=== PATIENT | male | born 1950 | race Asian ===

== ENCOUNTER 2020-07-29 12:02 | Inpatient (IN) | payer MEDICARE, OTHER ==
[2020-07-29] MEDS ORDERED: HYDROmorphone 1 MG/ML CARPUJECT IVP STA ×2 (12:16→14:23)
[2020-07-29 12:40] LABS: BASOPHILS # (AUTO) 0.1 10^3/uL (0.0-0.1); BASOPHILS % (AUTO) 0.4 %; EOSINOPHILS % (AUTO) 0.1 %; HGB - HEMOGLOBIN 13.6 g/dL (14.0-18.0); LYMPHOCYTES # (AUTO) 0.5 10^3/uL (1.5-3.5); MEAN CORPUSCULAR HEMOGLOBIN 32.2 pg (27.0-31.0); MEAN CORPUSCULAR HGB CONC 33.7 g/dL (32.0-36.0); MEAN CORPUSCULAR VOLUME 95.5 fL (80.0-94.0); MEAN PLATELET VOLUME 10.2 fL (7.4-11.4); MONOCYTES # (AUTO) 0.5 10^3/uL (0.0-1.0); MONOCYTES % (AUTO) 3.1 %; NEUTROPHILS # (AUTO) 15.9 10^3/uL (1.5-6.6); NEUTROPHILS % (AUTO) 92.7 %; PLT - PLATELET COUNT 232 10^3/uL (130-450); RED BLOOD COUNT 4.22 10^6/uL (4.70-6.10); RED CELL DISTRIBUTION WIDTH 12.5 % (12.0-15.0); WHITE BLOOD COUNT 17.1 x10^3/uL (4.8-10.8)
[2020-07-29 12:49] LABS: INR 1.2 (0.8-1.2); PT - PROTHROMBIN TIME 13.3 secs (9.9-12.6)
[2020-07-29 12:54] LABS: ALBUMIN 4.4 g/dL (3.2-5.5); ALBUMIN/GLOBULIN RATIO 1.2 (1.0-2.2); BILIRUBIN,TOTAL 0.8 mg/dL (0.2-1.0); CALCIUM 9.8 mg/dL (8.5-10.3); CREATININE 1.1 mg/dL (0.6-1.2)
--- NOTE | 2020-07-29 13:15 | CT Report ---
PROCEDURE: HEAD WO INDICATIONS: head inj, fall from height TECHNIQUE: Noncontrast 4.5 mm thick angled axial sections acquired from the foramen magnum to the vertex. For r adiation dose reduction, the following was used: automated exposure control, adjustment of mA and/or kV according to patient size. COMPARISON: Correlation is made with the accompanying maxillofacial CT and cervical spine CT, 2019 FINDINGS: Image quality: Excellent. CSF spaces: Basal cisterns are patent. No extra-axial fluid collections. Ventricles are normal in size and shape. Brain: No midline shift. No intracranial masses or hemorrhage. [place]-white matter interface is norm al. Skull and face: Numerous facial bone fractures are seen. There is a scalp hematoma seen on the right , without an associated displaced calvarial fracture seen at this site. Sinuses: Blood is seen within the right maxillary sinus and within the sphenoid sinuses. No significa nt abnormal fluid can be seen within the mastoid air cells or within the middle ear cavities. IMPRESSION: No intracranial hemorrhage is seen. No significant intracranial abnormality is seen. Numerous facial bone fractures are seen. Sinus blood can be seen. Please see the accompanying maxillo facial CT report. Right-sided scalp hematoma, without an associated displaced calvarial fracture. Reviewed by: Ronnie Solomon MD on 07/29/2020 12:14 PM STEVEN Approved by: Ronnie Solomon MD on 07/29/2020 12:14 PM STEVEN Station ID: [id number]
--- NOTE | 2020-07-29 13:19 | CT Report ---
PROCEDURE: CERVICAL SPINE WO INDICATIONS: fall from height TECHNIQUE: Noncontrast 3 mm thick sections acquired from the skull base to the T4 level. Sagittal and coronal r eformats were then constructed. For radiation dose reduction, the following was used: automated exp osure control, adjustment of mA and/or kV according to patient size. COMPARISON: Correlation is made with the accompanying head CT and maxillofacial CT and chest CT date d 07/29/2020 FINDINGS: Image quality: Excellent. Bones: No fractures or dislocations. Visualized superior ribs are intact. Postoperative changes are seen, with corpectomy with a fibular strut graft extending from C4 through C7. Posteriorly, bilateral pedicle screws are seen C4-C7. The C7 screws partially traverse the C7-T1 disc levels. No findings of hardware failure or hardware loosening can be seen. Bone grafting materia l is seen. Focal degenerative change is seen involving the C1-C2 interface anteriorly. Focal facet hypertrophy i s seen at the C2-C3 level, right worse than left. Focal disc space narrowing is seen at the T1-T2 lev el, with associated endplate irregularity and sclerosis. Vacuum disc phenomenon is seen at this leve l. Soft tissues: Prevertebral soft tissues are normal in thickness. No paravertebral hematomas. No ap ical pneumothoraces. IMPRESSION: Extensive postoperative hardware, without findings of hardware failure or hardware loosening. No acute fractures are seen. Focal T1-T2 degenerative change Reviewed by: Ronnie Solomon MD on 07/29/2020 12:17 PM STEVEN Approved by: Ronnie Solomon MD on 07/29/2020 12:17 PM AKJAYDEN Station ID: [id number]
--- NOTE | 2020-07-29 13:19 | ED Physician Documentation ---
PD HPI HEAD INJURY - Stated complaint Stated Complaint: FALL - Chief complaint Chief Complaint: Trauma Hd/Nk - History obtained from History obtained from: Patient - Additional information Additional information: 69-year-old gentleman with hypertension was up on his roof taking shingles off in preparation for re-hoa and fell. He landed on his right side with positive loss of consciousness for several minutes. Complains of right-sided headache and facial pain, right shoulder pain, right chest pain. He has been ambulatory since the accident. He is up-to-date on tetanus. Review of Systems Ten Systems: 10 systems reviewed and negative Constitutional: reports: Reviewed and negative Throat: reports: Reviewed and negative Cardiac: reports: Reviewed and negative Respiratory: reports: Reviewed and negative PD PAST MEDICAL HISTORY - Past Medical History Past Medical History: Yes Cardiovascular: None Respiratory: None Neuro: None Endocrine/Autoimmune: None GI: Hepatitis : None HEENT: Other Psych: None Musculoskeletal: Chronic back pain, Other Derm: None - Past Surgical History Past Surgical History: Yes General: Appendectomy Ortho: Spine surgery Derm: Other - Present Medications Home Medications: Ambulatory Orders Medication Instructions Recorded Confirmed hydroCHLOROthiazide 25 mg PO DAILY 07/29/20 07/29/20 [Hydrochlorothiazide] lisinopriL [Lisinopril] 10 mg PO DAILY 07/29/20 07/29/20 - Allergies Allergies/Adverse Reactions: Allergies Allergy/AdvReac Type Severity Reaction Status Date / Time No Known Drug Allergies Allergy Verified 07/29/20 12:16 - Social History Does the pt smoke?: No Smoking Status: Never smoker Does the pt drink ETOH?: Yes ETOH Use: Beer Does the pt have substance abuse?: No - Immunizations Immunizations are current?: Yes - POLST Patient has POLST: No PD ED PE NORMAL - Vitals Vital signs reviewed: Yes - General General: Alert and oriented X 3, No acute distress - HEENT HEENT: PERRL, EOMI, Other (Swelling and tenderness of the right maxilla and supraorbital areas with ecchymosis there. He has a small lateral right sided subconjunctival hemorrhage, No evidence of entrapment) - Neck Neck: No bony TTP (But maintained in a collar pending imaging given potential for distracting injury) - Cardiac Cardiac: RRR, No murmur - Respiratory Respiratory: No respiratory distress, Clear bilaterally, Other (Mild right-sided chest wall tenderness) - Abdomen Abdomen: Soft, Non tender - Back Back: No CVA TTP, No spinal TTP - Derm Derm: Normal color, Warm and dry - Extremities Extremities: Other (Little scrape on the right knee, no bony tenderness of the extremities. Shoulder hurts with range of motion and only able to abduct to about 90 degrees.) - Neuro Neuro: Alert and oriented X 3, No motor deficit, No sensory deficit, Normal speech Results - Vitals Vitals: Vital Signs - 24 hr 07/29/20 07/29/20 07/29/20 12:05 12:22 13:22 Temperature 36.9 C 36.7 C Heart Rate 66 62 64 Respiratory 18 10 L 15 Rate Blood Pressure 139/73 H 144/78 H 136/67 H O2 Saturation 97 99 98 07/29/20 07/29/20 07/29/20 13:30 14:00 14:33 Temperature Heart Rate 61 59 L 67 Respiratory 12 13 12 Rate Blood Pressure 106/90 H 127/4 L 131/74 H O2 Saturation 99 98 100 Oxygen O2 Source Room air - Labs Labs: Laboratory Tests 07/29/20 07/29/20 07/29/20 12:25 12:25 12:25 WBC 17.1 H RBC 4.22 L Hgb 13.6 L Hct 40.3 L MCV 95.5 H MCH 32.2 H MCHC 33.7 RDW 12.5 Plt Count 232 MPV 10.2 Neut # (Auto) 15.9 H Lymph # (Auto) 0.5 L [place] # (Auto) 0.5 Eos # (Auto) 0.0 Baso # (Auto) 0.1 Absolute Nucleated RBC 0.00 Nucleated RBC % 0.0 PT 13.3 H INR 1.2 Sodium 139 Potassium 3.7 Chloride 102 Carbon Dioxide 24 Anion Gap 13.0 BUN 30 H Creatinine 1.1 Estimated GFR (MDRD) 67 L Glucose 139 H Calcium 9.8 Total Bilirubin 0.8 AST 71 H ALT 35 Alkaline Phosphatase 64 Total Protein 8.0 Albumin 4.4 Globulin 3.6 Albumin/Globulin Ratio 1.2 Lipase 28 - Rads (name of study) CT Head Radiology: EMP read contemporaneously (No significant intracranial abnormality or displaced skull fracture; However subsequently I was talking to the radiologist and he agreed there was a nondisplaced right temporoparietal skull fracture. He also noted a tiny amount of intracranial air and blood that was seen better on the CT face) CT cervical spine Radiology: EMP read contemporaneously (Hardware in place, no acute disease or fracture.) X-ray right shoulder Radiology: EMP read contemporaneously (Nondisplaced glenoid fracture) CT Facial bones Radiology: Discussed with rads, EMP read contemporaneously (Extensive right- sided facial bone fractures with hemorrhage into the right sinus, right basilar skull fracture with a small amount of intracranial gas and intracranial hemorrhage.) CT of the chest without contrast Radiology: EMP read contemporaneously (Nondisplaced right lateral lower rib fracture with immediately adjacent small amount of intercostal subcutaneous emphysema and mild focal pulmonary contusion. Note made of 2 x 3 mm nonspecific small pulmonary nodule) PD MEDICAL DECISION MAKING - ED course ED course: 69-year-old gentleman presents with fall from height, shoulder chest head and face injuries. He has some extensive facial fractures that have just a bit of intracranial extension and nondisplaced skull fracture. Looks like he has a rib fracture with a small pulmonary contusion, also a glenoid fracture. The glenoid fracture we discussed by phone with Dr. Delgadillo, on-call orthopedics who felt that this was conservative management with a sling only. The facial fractures were discussed by phone with Dr. Leonides Shaikh who will see the patient but first we need to clear him from a neurosurgical perspective and I will call [facility] and discuss given the intracranial gas and blood. Subsequently I called [facility] but it turns out the patient had [employer] insurance and I spoke with the E pro line. They prefer if he needs transport for him to go to [place]. [place] [facility] [place] was called for a neurosurgical consult. [place] said it was okay to keep him here if he does not need transport. Spoke with Dr. Gonzalez, neurosurgery in [place]. He viewed the CTs and felt that the patient did not need transfer for neurosurgical intervention nor does he need repeat scanning unless the GCS dropped to 12 or lower[address] Spoke with Dr. Cameron the general surgeon at 3 PM for admission, he will write admission orders as. Dr. Shaikh will come in and consult and consider the need for operative fixation. Departure - Departure Disposition: 67 [facility] DC/Xfer Clinical Impression: Pulmonary nodule Facial bone fracture Qualifiers: Encounter type: initial encounter Facial bone/location: unspecified site of maxillary bone Fracture type: closed Laterality: right Qualified Code(s): S02.40CA - Maxillary fracture, right side, initial encounter for closed fracture Skull fracture Qualifiers: Encounter type: initial encounter Skull bone/location: temporal bone Fracture type: closed Qualified Code(s): S02.19XA - Other fracture of base of skull, initial encounter for closed fracture Pulmonary contusion Qualifiers: Encounter type: initial encounter Laterality: right Qualified Code(s): S27.321A - Contusion of lung, unilateral, initial encounter Fracture of rib, single, closed Qualifiers: Encounter type: initial encounter Laterality: right Qualified Code(s): S22.31XA - Fracture of one rib, right side, initial encounter for closed fracture Condition: Fair
--- NOTE | 2020-07-29 13:20 | XRAY Report ---
PROCEDURE: Shoulder 3 View RT INDICATIONS: shoulder inj TECHNIQUE: 3 views of the shoulder were acquired. COMPARISON: None. FINDINGS: Bones: There is an acute fracture involving upper portion of glenoid with fracture line extending to the glenohumeral joint space. Moderate acromioclavicular joint and glenohumeral joint osteoarthritic changes are seen. No dislocation. No suspicious bony lesions. Visualized ribs appear intact. Soft tissues: No suspicious soft tissue calcifications. IMPRESSION: Acute nondisplaced glenoid fracture as above. Reviewed by: Shaun Ho MD on 07/29/2020 1:18 PM PDT Approved by: Shaun Ho MD on 07/29/2020 1:18 PM PDT Station ID: [id number]
--- NOTE | 2020-07-29 13:33 | CT Report ---
PROCEDURE: MAXILLOFACIAL WO INDICATIONS: facial inj, fall from height TECHNIQUE: Noncontrast 1.5 mm thick axial images acquired from the mandible through the frontal sinuses, with co fredi and sagittal reformatting. For radiation dose reduction, the following was used: automated ex posure control, adjustment of mA and/or kV according to patient size. COMPARISON: Correlation is made with the accompanying head CT and cervical spine CT examinations, FINDINGS: Image quality: Excellent. Bones and teeth: The right lateral orbital wall and right orbital floor are fractured. No definite f indings of entrapment of the inferior rectus muscle can be seen. However, please correlate with physi latoya examination findings. Mild degree of intraorbital gas can be seen inferiorly, as on series 5 imag e 51. There is a comminuted fracture of the right zygomatic arch. The zygoma itself appears intact. The anterior, medial, lateral bean of the right maxillary sinus are fractured. Extensive right maxil adair sinus blood can be seen. The pterygoid plates appear intact. There is a mildly displaced fracture seen involving the right greater wing of the sphenoid, which is best seen on series 6 image 129. There is a small amount of associated intracranial gas, which is als o seen on series 6 image 129 and can also be seen on series 3 image 107. A small amount of hemorrhage can be seen involving the anterior aspect of the right middle cranial fossa. The mandible does not appear fractured. There is no mandibular dislocation. Cervical spine fixation hardware is partially seen and appears intact. There is chronic mild to moderate rightward nasal septal deviation, without an acute nasal septal fra cture identified. No definite acute nasal bone fracture is seen. The right cranial demonstrates a complex fracture, which can be seen on series 2 images 115 through 1 55. Sinuses: Extensive blunt can be seen within the right maxillary sinus and the sphenoid sinuses. Mild mucosal thickening is seen within the ethmoid air cells. No significant abnormal fluid can be seen wi thin the mastoid air cells or within the middle ear cavities. Soft tissues: Soft tissue hemorrhage can be seen on the right. Vascular: Visualized vascular structures appear normal in the absence of contrast. Bony vascular fo ramina and canals are intact. IMPRESSION: Extensive right-sided facial bone fractures are seen, with associated prominent sinus he morrhage. The right skull base is fractured, with associated intracranial gas and a small amount of intracrania l hemorrhage involving the anterior aspect of the right middle cranial fossa. A complex fracture can also be seen involving the right cranial vault laterally. Note: Case discussed by telephone with Dr. Burks at 12:28 PM [place] time on 07/29/2020. Reviewed by: Ronnie Solomon MD on 07/29/2020 12:31 PM AKDT Approved by: Ronnie Solomon MD on 07/29/2020 12:31 PM AKDT Station ID: [id number]
--- NOTE | 2020-07-29 13:47 | CT Report ---
PROCEDURE: CHEST WO INDICATIONS: chest wall inj, fall from height TECHNIQUE: Noncontrast 5 mm thick sections acquired from the pulmonary apices to the posterior costophrenic angl es. 7 mm thick coronal and sagittal MIP reformats were then acquired. For radiation dose reduction, the following was used: automated exposure control, adjustment of mA and/or kV according to patient size. COMPARISON: FINDINGS: Image quality: Excellent. Lungs and pleura: No acute air space opacities on the left but there is a focal pulmonary contusion on the right involving the lateral segment right middle lobe immediately deep to an area of nondispla yuri rib fracture and a slight degree of chest wall subcutaneous emphysema, best seen centered on CT s eries 4 image 133 for the subcutaneous emphysema, and the fracture and contiguous pulmonary contusion on image 146. A 2 x 3 mm pulmonary nodule is seen within the anterior right lower lobe on image 181. . No pleural effusions or pneumothorax. Central and peripheral airways are patent and normal in latoya iber. Mediastinum: Heart size is normal. No pericardial effusion. No mediastinal adenopathy by size crit eria. Thoracic aorta and central pulmonary arteries are normal in size. Esophagus is normal in rinku gamal. No hiatal hernia. Bones and chest wall: No suspicious bony lesions. No vertebral body compression fractures. No axil adair or supraclavicular adenopathy by size criteria. The thyroid is normal in size. Abdomen: Visualized upper abdominal solid organs and bowel loops appear normal in the absence of con trast. IMPRESSION: Nondisplaced right lateral lower rib fracture, with immediate adjacent small amount of intercostal purdy bcutaneous emphysema and also a mild focal pulmonary contusion within the lateral segment right middl e lobe. No pneumothorax more superiorly is found. Note is made of a 2 x 3 mm nonspecific small pulmonary nodule anterior right middle lobe near the are a of current injury. Reviewed by: Cedric Jones MD on 07/29/2020 1:45 PM PDT Approved by: Cedric Jones MD on 07/29/2020 1:45 PM PDT Station ID: [id number]
[2020-07-29] MEDS ORDERED: LORazepam 2 MG/ML VIAL IVP STA (15:31)
[2020-07-29] MEDS ORDERED: SODIUM CHLORIDE 0.9% 1,000 ML IV STA (15:31)
[2020-07-29] MEDS ORDERED: SODIUM CHLORIDE FLUSH 0.9% 10 ML SYRINGE IVP PRN ×2 (16:18)
[2020-07-29] MEDS ORDERED: ALBUTEROL NEB 2.5 MG/3 ML INH PRN (16:18)
[2020-07-29] MEDS ORDERED: METOCLOPRAMIDE 10 MG/2 ML VIAL IVP PRN (16:18)
[2020-07-29] MEDS ORDERED: ONDANSETRON 4 MG/2 ML VIAL IVP PRN (16:18)
[2020-07-29] MEDS ORDERED: IPRATROPIUM 0.2 MG/ML NEB INH PRN (16:18)
--- NOTE | 2020-07-29 16:18 | HISTORY & PHYSICAL EXAMINATION ---
Chief Complaint - Chief Complaint Chief Complaint: Fall from ladder with loss of consciousness History of Present Illness - Admitted From Admitted From:: By emergency medical services - History Obtained From Records Reviewed: EMR History obtained from: Patient Exam Limitations: None - History of Present Illness HPI Comment/Other: 69-year-old male presents following fall from ladder while working on roof at his mother's house. There was positive loss of consciousness. He had spontaneous return to consciousness. He complains of facial pain and right chest wall tenderness. He underwent full work-up by the emergency room and was also noted for facial bone fractures as well as rib fractures and surgery was called for consultation and admission. He has no significant past medical history other than hypertension for which he takes hydrochlorothiazide and lisinopril. No significant past abdominal surgical history other than appendectomy. He does have a significant history of C-spine fixation and surgery. History - Past Medical History Cardiovascular: reports: None Respiratory: reports: None Neuro: reports: None Endocrine/Autoimmune: reports: None GI: reports: Hepatitis : reports: None HEENT: reports: Other Psych: reports: None Musculoskeletal: reports: Chronic back pain, Other (History of C-spine fixation/surgery) Derm: reports: None - Past Surgical History General: reports: Appendectomy Ortho: reports: Spine surgery Derm: reports: Other - POLST Patient has POLST: No Meds/Allgy - Home Medications Home Medications: Ambulatory Orders Medication Instructions Recorded Confirmed hydroCHLOROthiazide 25 mg PO DAILY 07/29/20 07/29/20 [Hydrochlorothiazide] lisinopriL [Lisinopril] 10 mg PO DAILY 07/29/20 07/29/20 - Allergies Allergies/Adverse Reactions: Allergies Allergy/AdvReac Type Severity Reaction Status Date / Time No Known Drug Allergies Allergy Verified 07/29/20 12:16 Review of Systems - Constitutional Constitutional: denies: Fatigue - Eyes Eyes: reports: Pain - Ears, Nose & Throat Ears, Nose & Throat: denies: Ear pain - Cardiovascular Cariovascular: reports: Chest pain. denies: Irregular heart rate - Respiratory Respiratory: denies: Cough, Wheezing, Hemoptysis, Orthopnea, SOB at rest, SOB with exertion - Gastrointestinal Gastrointestinal: denies: Abdominal pain, Black stools, Bloody stools, Nausea, Vomiting - Musculoskeletal Musculoskeletal: reports: Back pain - Neurological Neurological: reports: Other (Does report loss of consciousness at the time of his fall). denies: General weakness, Focal weakness, Numbness Exam - Vital Signs Vital Signs: Vital Signs x48h Temp Pulse Resp BP Pulse Ox 07/29/20 14:33 67 12 131/74 H 100 07/29/20 14:00 59 L 13 127/4 L 98 07/29/20 13:30 61 12 106/90 H 99 07/29/20 13:22 36.7 C 64 15 136/67 H 98 07/29/20 12:22 62 10 L 144/78 H 99 07/29/20 12:05 36.9 C 66 18 139/73 H 97 - Physical Exam General Appearance: positive: No acute distress, Alert Eyes Bilateral: positive: Normal inspection, PERRL, EOMI, Other (No signs of entrapment from his facial fractures, significant right periorbital ecchymosis, full range of motion's bilateral orbits.) ENT: positive: ENT inspection nml Neck: positive: Nml inspection, Other (Patient with full range of motion of his neck with no midline tenderness on flexion, extension, bilateral head rotation. Some occipital discomfort but specifically no midline neck tenderness.) Respiratory: positive: No respiratory distress, Breath sounds nml, Other (Right- sided tenderness to palpation). negative: Chest non-tender, Wheezes, Rales, Rhonchi Cardiovascular: positive: Regular rate & rhythm Abdomen: positive: Non-tender, No distention, Other (Surgical dressing in place, clean dry and intact. No recurrent hernia. Soft nondistended positive bowel sounds.). negative: Tenderness, Guarding, Rebound Skin: positive: Color nml Extremities: positive: Non-tender, Full ROM, Nml appearance, Other (Moving all extremities no sensorimotor deficits grossly) Neurologic/Psychiatric: positive: Oriented x3, CN's nml (2-12), Motor nml, Sensation nml Sepsis Event Note (H) - Evaluation Current Stage of Sepsis: Ruled out Conclusion/Plan - Problem List (1) Fall (on) (from) unspecified stairs and steps, initial encounter Conclusion/Plan: Plan per oral maxillofacial surgery. Surgery on July 30 for ORIF. To this end we will continue to monitor for rhinorrhea, otorrhea, No antibiotics other than on-call to the OR per OMFS. Before surgery patient will have CT head and repeat chest x-ray to assure no propagation of his injuries. Great care should be taken given his history of C-spine fixation during positioning in the operating room. (2) Facial bone fracture Qualifiers: Encounter type: initial encounter Facial bone/location: unspecified site of maxillary bone Fracture type: closed Laterality: right Qualified Code(s): S02.40CA - Maxillary fracture, right side, initial encounter for closed fracture (3) Fracture of rib, single, closed Conclusion/Plan: CT of the chest revealed rib fracture, subcutaneous emphysema. Pain control, oxygen, incentive spirometry. Repeat plain abdominal film and if there is any concern repeat CT of the chest to rule out pneumothorax to assure there is no indication for chest tube preoperatively. Qualifiers: Encounter type: initial encounter Laterality: right Qualified Code(s): S22.31XA - Fracture of one rib, right side, initial encounter for closed fracture (4) Pulmonary contusion Conclusion/Plan: See above. Qualifiers: Encounter type: initial encounter Laterality: right Qualified Code(s): S27.321A - Contusion of lung, unilateral, initial encounter (6) Skull fracture Conclusion/Plan: Given his skull fracture, and loss of consciousness, together with mechanism, will repeat CT of the head this a.m. to assure there is no propagation prior to his operative intervention. Admit ICU n.p.o., serial neuro checks. Qualifiers: Encounter type: initial encounter Skull bone/location: temporal bone F racture type: closed Qualified Code(s): S02.19XA - Other fracture of base of skull, initial encounter for closed fracture - Lab Results Fish Bones: 07/29/20 12:25 07/29/20 12:25 - Diagnostic Imaging Results Diagnostic Imaging Results Comments: CT head impression: 1. No intracranial hemorrhage is seen 2. No significant intracranial abnormality is seen. 3. Numerous facial bone fractures are seen 6. Sinus blood can be seen. 4. Right sided scalp hematoma without associated displaced calvarial fracture. CT C-spine impression: 1. Extensive postoperative hardware, without findings of hardware failure or hardware loosening. 2. No acute fractures are seen. 3. Focal T1-T2 generative change Facial bone CT: 1. Extensive right-sided facial bone fractures are seen with associated prominent sinus hemorrhage 2. The right skull base is fractured with associated intracranial gas and a small amount of intracranial hemorrhage involving the anterior aspect of the right middle cranial fossa. 3. A complex fracture can also be seen involving the right cranial vault laterally. CT of the chest Undisplaced right lateral lower rib fracture, with immediate adjacent small amount of intercostal subcutaneous emphysema and also a mild focal pulmonary contusion within the lateral segment right middle lobe. No pneumothorax more superiorly is found. Note is made of a 2 x 3 mm nonspecific small pulmonary nodule anterior right middle lobe near the area of current injury.
--- NOTE | 2020-07-29 16:53 | CONSULTATION NOTE ---
Referring Provider Name of Referring Provider:: Flaquito Elliott Consult Date: 07/29/20 <Leonides Shaikh - Last Filed: 07/29/20 21:56> Chief Complaint - Chief Complaint Chief Complaint: Shoulder pain <Leonides Shaikh - Last Filed: 07/29/20 21:56> History of Present Illness - Admitted From Admitted From:: ER <Leonides Shaikh - Last Filed: 07/29/20 21:56> - History of Present Illness HPI Comment/Other: 69 yo M who fell one story from his roof today, where he was working. He did have loss of consciousness. He was brought to the [facility] ER and had CT head, face, neck. He was found to have a small intracranial injury associated with a right temporoparietal fracture, minimally displaced. Neurosurgery at another facility reviewed the patient's radiographs and no transfer or follow up CT is indicated. The patient also sustained a rib fracture. He is being admitted by General Surgery for observation. OMFS was consulted for evaluation and management of a right ZMC fracture. (Leonides Shaikh) History - Past Medical History Cardiovascular: reports: None Respiratory: reports: None Neuro: reports: None Endocrine/Autoimmune: reports: None GI: reports: Hepatitis : reports: None HEENT: reports: Other Psych: reports: None Musculoskeletal: reports: Chronic back pain, Other Derm: reports: None - Past Surgical History General: reports: Appendectomy Ortho: reports: Spine surgery Derm: reports: Other - POLST Patient has POLST: No <Leonides Shaikh - Last Filed: 07/29/20 21:56> Meds/Allgy <Alin Delgadillo - Last Filed: 07/29/20 17:44> <Leonides Shaikh - Last Filed: 07/29/20 21:56> - Home Medications Home Medications: Ambulatory Orders Medication Instructions Recorded Confirmed hydroCHLOROthiazide 25 mg PO DAILY 07/29/20 07/29/20 [Hydrochlorothiazide] lisinopriL [Lisinopril] 10 mg PO DAILY 07/29/20 07/29/20 - Allergies Allergies/Adverse Reactions: Allergies Allergy/AdvReac Type Severity Reaction Status Date / Time No Known Drug Allergies Allergy Verified 07/29/20 12:16 Review of Systems - Eyes Eyes: reports: Vision loss (chronic. Denies acute vision loss.). denies: Pain, Spots in vision, Field loss, Dipolpia - Ears, Nose & Throat Ears, Nose & Throat: reports: Hearing loss (Chronic.), Nasal pain (Epistaxis after the fall, stopped with pressure), Dentures. denies: Ear pain - Cardiovascular Cariovascular: denies: Palpitations, Chest pain, Lightheadedness, Syncope - Respiratory Respiratory: denies: Cough, Wheezing - Gastrointestinal Gastrointestinal: denies: Abdominal pain, Rectal bleeding, Vomiting - Musculoskeletal Musculoskeletal: reports: Back pain - Integumentary Integumentary: denies: Rash, Lesions - Neurological Neurological: reports: Headache, Dizziness. denies: General weakness, Numbness - Psychiatric Psychiatric: denies: Depression, Anxiety - All Other Systems All Other Systems: reports: Reviewed and negative <Leonides Shaikh - Last Filed: 07/29/20 21:56> Exam - Physical Exam General Appearance: positive: Other (Awake alert and conversant.) Eyes Bilateral: positive: PERRL, Other (Right hemifacial bruisingScleral erythema right eye.) ENT: positive: Other (Full range of motion of the cervical spine with forward flexion extension and rotation without any cervical spine tenderness) Neck: positive: Trachea midline, Swelling/bruising (No specific swelling or bruising.) Cardiovascular: positive: Regular rate & rhythm Abdomen: positive: Non-tender Rectal: positive: Other (Deferred) Back: positive: Nml inspection, Other (No specific tenderness in his lumbar spine) Skin: positive: Other (As noted previously he has ecchymoses on his face and a right knee abrasion superficial) Extremities: positive: Other (Specific exam of his right shoulder reveals that he can abduct to only about 90 degrees and externally rotate to about 30 degrees actively and internally rotate to his chestHe has full range of motion of his elbow. His radial median ulnar nerves are intact. Musculocutaneous and axill sarah nerves are) Neurologic/Psychiatric: positive: Oriented x3, CN's nml (2-12), Motor nml, Sensation nml, Mood/affect nml, Disoriented to place, Disoriented to time Reflexes: Bicep (R): 1+, Bicep (L): 1+, Knee (R): 1+, Knee (L): 1+, Ankle (R): 1+, Ankle (L): 1+ <Alin Delgadillo - Last Filed: 07/29/20 17:44> - Vital Signs Reviewed Vital Signs: Yes - Physical Exam Eyes Bilateral: positive: PERRL, EOMI, No lid inflammation, Other (Subconjunctival hemorrhage limited to the R sclera, stopping abruptly at midline, consistent with the classic clinical exam finding for ZMC fracture.) ENT: positive: Other (Full range of motion of the cervical spine with forward flexion extension and rotation without any cervical spine tenderness PATRIC wnl. Bruising in the R maxillary vestibule) Respiratory: positive: No respiratory distress, Other (Pain in the R costovertebral angle during deep breaths) Peripheral Pulses: positive: 2+ Abdomen: positive: No distention Back: positive: Other Neurologic/Psychiatric: positive: CN's nml (2-12), Motor nml <Leonides Shaikh - Last Filed: 07/29/20 21:56> - Vital Signs Vital Signs: Vital Signs x48h Temp Pulse Pulse Resp BP BP Pulse Ox 07/29/20 16:55 36.9 C 61 14 146/69 H 99 07/29/20 16:40 98 15 130/75 98 07/29/20 14:33 67 12 131/74 H 100 07/29/20 14:00 59 L 13 127/4 L 98 07/29/20 13:30 61 12 106/90 H 99 07/29/20 13:22 36.7 C 64 15 136/67 H 98 07/29/20 12:22 62 10 L 144/78 H 99 07/29/20 12:05 36.9 C 66 18 139/73 H 97 Conclusion/Plan - Diagnosis Diagnosis: Right glenoid fracture minimally displaced - Lab Results Fish Bones: 07/29/20 12:25 07/29/20 12:25 <Alin Delgadillo - Last Filed: 07/29/20 17:44> - Diagnosis Diagnosis: Right zygomaticomaxillary fracture - Lab Results Fish Bones: 07/29/20 12:25 07/29/20 12:25 <Leonides Shaikh - Last Filed: 07/29/20 21:56> - Plan Plan: Patrica sustained a R ZMC fracture with a mild orbital floor component. There is no malocclusion and no mobility of the maxilla. No Leforte fracture. There radiographic findings of pneumocephalus suggest occult skull base f racture. Currently there is no clear drainage from the naris or from the external auditory canal. Plan: We anticipate ORIF of the R ZMC fracture in the MOR under general anesthesia. - likely tomorrow at 12 or 5 pm, scheduling not finalized. Pending clearance from general surgery, which depends upon stable pneumothorax on repeat radiograph tomorrow. - Unasyn 3g x1 OCTOR - NPO after midnight - NO NOSE BLOWING x 2 weeks. - Monitor for CSF rhinorrhea or otorrhea Please call with any questions. [phone] Leonides Shaikh DDS (Leonides Shaikh) - Other Other Results/Comments: I reviewed his x-rays 3 views of the right ShoulderWhich show that his proximal humerus is located and concentric however he has a minimally displaced fracture of the superior one third of the glenoid with some comminution.I do not think th at he needs an ORIF of the glenoid at this point and can be treated conservatively in a sling withActive range of motion as tolerated. Positioning in the operating roomDuring reduction of his facial fractureShould avoid abduction of the right shoulder greater than 90 degrees and ideally would be in ternal rotation in neutral position of the right shoulder. (Alin Delgadillo)
[2020-07-29] MEDS ORDERED: SODIUM CHLORIDE FLUSH 0.9% 10 ML SYRINGE IVP SCH (17:00)
[2020-07-29] MEDS ORDERED: D5NS W/20 MEQ KCL 1,000 ML IV SCH (17:00)
[2020-07-29] MEDS ORDERED: IPRATROPIUM/ALBUTEROL 3 ML NEB INH PRN (17:23)
--- NOTE | 2020-07-29 17:44 | CONSULTATION NOTE ---
Chief Complaint - Chief Complaint Chief Complaint: Right glenoid fracture History of Present Illness - Admitted From Admitted From:: Emergency room - History Obtained From History obtained from: Patient - History of Present Illness HPI Comment/Other: This 69-year-old gentleman fell approximately 10 feet from his roof and suffered an injury to his right shoulder and his right knee as well as facial injuries and a minimally displaced skull fracture. He had a 10-second loss of consciousness. He was admitted and stabilized in the emergency room and assessed for rib fractures and pulmonary contusion.The requested that I consult regarding his right shoulder. He is complaining of right shoulder pain but no back pain leg pain or pelvis pain.He is not complaining of any paresthesias in his arms or legs. He denies any cervical spine discomfort. History - Past Medical History Cardiovascular: reports: None Respiratory: reports: None Neuro: reports: None Endocrine/Autoimmune: reports: None GI: reports: Hepatitis : reports: None HEENT: reports: Other Psych: reports: None Musculoskeletal: reports: Chronic back pain, Other Derm: reports: None - Past Surgical History General: reports: Appendectomy Ortho: reports: Spine surgery Derm: reports: Other - POLST Patient has POLST: No Meds/Allgy - Home Medications Home Medications: Ambulatory Orders Medication Instructions Recorded Confirmed hydroCHLOROthiazide 25 mg PO DAILY 07/29/20 07/29/20 [Hydrochlorothiazide] lisinopriL [Lisinopril] 10 mg PO DAILY 07/29/20 07/29/20 - Allergies Allergies/Adverse Reactions: Allergies Allergy/AdvReac Type Severity Reaction Status Date / Time No Known Drug Allergies Allergy Verified 07/29/20 12:16 Exam - Vital Signs Vital Signs: Vital Signs x48h Temp Pulse Pulse Resp BP BP Pulse Ox 07/29/20 16:55 36.9 C 61 14 146/69 H 99 07/29/20 16:40 98 15 130/75 98 07/29/20 14:33 67 12 131/74 H 100 07/29/20 14:00 59 L 13 127/4 L 98 07/29/20 13:30 61 12 106/90 H 99 07/29/20 13:22 36.7 C 64 15 136/67 H 98 07/29/20 12:22 62 10 L 144/78 H 99 07/29/20 12:05 36.9 C 66 18 139/73 H 97 Conclusion/Plan - Lab Results Fish Bones: 07/29/20 12:25 07/29/20 12:25
[2020-07-29] MEDS: HYDROmorphone 0.5 MG/0.5 ML SYRINGE IVP PRN ×3 (17:50→23:51)
[2020-07-29] MEDS: PANTOPRAZOLE 40 MG VIAL IVP SCH (18:00)
[2020-07-29] MEDS: D5NS W/20 MEQ KCL 1,000 ML IV SCH (18:00)
[2020-07-29] MEDS: SODIUM CHLORIDE FLUSH 0.9% 10 ML SYRINGE IVP SCH (18:03)
[2020-07-29] MEDS: methocarbamoL 500 MG TABLET PO SCH ×2 (18:05→23:47)
[2020-07-29] MEDS ORDERED: HEPARIN 5,000 UNIT/ML VIAL SUBQ SCH (21:00)
[2020-07-30] MEDS: D5NS W/20 MEQ KCL 1,000 ML IV SCH ×3 (01:21→17:25)
[2020-07-30] MEDS: SODIUM CHLORIDE FLUSH 0.9% 10 ML SYRINGE IVP SCH ×3 (01:21→17:28)
[2020-07-30] MEDS: methocarbamoL 500 MG TABLET PO SCH ×4 (06:25→23:57)
[2020-07-30] MEDS: PANTOPRAZOLE 40 MG VIAL IVP SCH (06:25)
--- NOTE | 2020-07-30 08:27 | XRAY Report ---
PROCEDURE: Chest 1 View X-Ray INDICATIONS: evaluate for pneumothorax post fall, rib fx TECHNIQUE: One view of the chest was acquired. COMPARISON: None. FINDINGS: Surgical changes and devices: None. Lungs and pleura: No pleural effusions or pneumothorax. Lungs are clear. Mediastinum: Mediastinal contours appear normal. Heart size is normal. Bones and chest wall: No suspicious bony lesions. Overlying soft tissues appear unremarkable. IMPRESSION: Negative exam. No evidence of pneumothorax Findings are concordant with the preliminary study interpretation provided at the time of the study. Reviewed by: Puneet Chauhan MD on 07/30/2020 8:26 AM PDT Approved by: Puneet Chauhan MD on 07/30/2020 8:26 AM PDT Station ID: [id number]
[2020-07-30] MEDS: HYDROmorphone 0.5 MG/0.5 ML SYRINGE IVP PRN ×4 (09:20→20:02)
--- NOTE | 2020-07-30 09:20 | CT Report ---
PROCEDURE: HEAD WO INDICATIONS: Evaluate for intracranial hemorrhage, h/o fall TECHNIQUE: Noncontrast 4.5 mm thick angled axial sections acquired from the foramen magnum to the vertex. For r adiation dose reduction, the following was used: automated exposure control, adjustment of mA and/or kV according to patient size. COMPARISON: CT head 07/29/2020, CT maxillofacial bones 07/29/2020. FINDINGS: Image quality: There is mild beam hardening artifact. CSF spaces: Basal cisterns are patent. No extra-axial fluid collections. Ventricles are normal in size and shape. Brain: A small amount of subdural hemorrhage is redemonstrated within the right middle cranial fossa along the temporal lobe. This appears similar to the prior study with interval decreased pneumocepha alba. Small residual foci of gas are again noted in the right middle cranial fossa. More superiorly, a small subdural hematoma is demonstrated along the right parietal lobe adjacent to the calvarial frac ture. This appears slightly increased from the prior study. There is no associated midline shift. Gra y-white matter interface appears preserved. Skull and face: A nondepressed fracture is redemonstrated laterally in the right calvarium involving the temporal bone and extending inferiorly to the skull base with involvement of the greater wing of the sphenoid. Fracture extends to the sphenoid sinus. In addition, multiple facial bone fractures ar e redemonstrated including a mildly displaced fracture of the right zygomatic arch, fractures of the right lateral and inferior orbital bean, and fractures of the anterior, medial, and lateral bean of the right maxillary sinus. The globes appear intact. No inferior herniation of the extraocular muscl es. Sinuses: Visualized sinuses again demonstrate fluid opacification of the right maxillary and bilater al sphenoid sinuses with internal hyperattenuation consistent with blood product. Minimal mucosal thi ckening in the ethmoid sinuses. Mastoid air cells are clear. IMPRESSION: 1. Small subdural hematoma within the right middle cranial fossa and extending superiorly along the r ight parietal lobe appears similar to minimally increased in size compared to the prior study. No ass ociated midline shift. 2. Slight interval decrease in pneumocephalus. 3. Right calvarial and multiple facial fractures redemonstrated as described. 4. Hemorrhagic fluid again demonstrated within the right maxillary and bilateral sphenoid sinuses. Reviewed by: Ross Parnell MD on 07/30/2020 9:19 AM PDT Approved by: Ross Parnell MD on 07/30/2020 9:19 AM PDT Station ID: [id number]
--- NOTE | 2020-07-30 12:05 | PROVIDER PROGRESS NOTE ---
Progress Note Subjective: 69-year-old male hospital day #2 admitted for fall and multiple facial fractures. Injuries include facial bone trauma, rib fractures, right, amongst others. He is pending OMFS surgical intervention today. He remains n.p.o. No altered sensorium overnight. He is undergone repeat chest x-ray and repeat head CT this morning in anticipation of operative intervention with OMFS. Please see below for results. Objective: He is afebrile vital signs are stable Extraocular movements are intact, no rhinorrhea, no otorrhea. Lungs clear to auscultation bilaterally no wheezes rales or rhonchi Regular rate and rhythm for palpable radial pulses bilaterally Abdomen soft nontender nondistended no rebound or guarding Impression from repeat head CT: 1. Small subdural hematoma within the right middle cranial fossa and extending superiorly along the right parietal lobe appears similar to minimal minimally increased in size compared to the prior study no associated midline shift. 2. Slight interval decrease in pneumocephalus. 3. Redemonstration of multiple facial fractures. 4. Hemorrhagic fluid again demonstrated within the right maxillary and bilateral sphenoid sinuses. Chest x-ray was within no pneumothorax, hemothorax, or effusion Assessment and plan: 69-year-old male status post fall with loss of consciousness now with subdural hematoma slightly increased on serial imaging. Multiple facial fractures with no evidence of entrapment on examination of extraocular movements. No otorrhea, no rhinorrhea. Repeat imaging with no concerns for pneumothorax in spite of rib fractures. Shoulder fracture nonoperative per orthopedics. 1. Phone call to [facility] for neurosurgical consultation with regard to the patient's imaging and presentation. If the patient is not candidate for transfer, we will discuss any recommendations as it relates to follow-up, perioperative medical management for seizure prophylaxis, repeat imaging, amongst others. 2. Continue with respiratory support, nebs, oxygen supplementation, incentive spirometry. Repeat chest x-ray in a.m. if the patient remains inpatient here at [facility]. 3. N.p.o. possibly pending operative intervention with continued ICU monitoring. 4. Appreciate orthopedic consultation. Appreciate the patient's and input from OMFS as well. 5. Hold off on operative intervention at this moment pending neurosurgical recommendations.
--- NOTE | 2020-07-30 12:11 | PHARMACY PROGRESS NOTE ---
- Best Possible Medication History Admit Date and Time: 07/29/20 1618 Processed by: Nursing Medication History completed: Yes As the person ultimately responsible for medication therapy, providers are able to order a medication from an existing home medication list in [facility] via the "Reconcile Routine" prior to Confirmation of that medication by client support consultant. Such practice is discouraged except when the physician, in their clinical judgment, deems that a medical need exists for a medication without regard to previous use.
--- NOTE | 2020-07-30 20:48 | PROVIDER PROGRESS NOTE ---
Progress Note Subjective: No changes overnight. Alert and awake. No significant headache. No shortness of breath or significant chest pain. No change in vision. Febrile episode overnight. Objective: Alert awake and oriented x3, hemodynamically acceptable Lungs clear to auscultation bilaterally no wheezes rales or rhonchi Regular rate and rhythm Abdomen soft nontender nondistended no rebound no guarding Moving all extremities with no sensorimotor deficits EOMI, PERRLA, cranial nerves II through XII grossly intact Assessment and plan: 69-year-old male status post fall now with evidence of subdural hematoma in addition to facial fractures. Awaiting ORIF. Also rib fractures no evidence of pneumothorax. Discussed as per below with [facility] neurosurgery. Patient's also been seen by orthopedics for shoulder fracture for which there is no operative intervention. Patient had undergone head CT earlier today which showed propagation and interval increase in the subdural hematoma that was not initially read on his admission CT of the head. He has had no interval change in his sensorium. He is awake and alert. Discussed this at length with Dr. Greene from [facility], [facility]. There is no indication for any transfer at this time the patient is candidate for operative intervention with OMFS as long as another interval CT of the head shows no worsening of his bleed. Moreover we will continue him with serial neuro checks. I reviewed his x-rays 3 views of the right ShoulderWhich show that his proximal humerus is located and concentric however he has a minimally displaced fracture of the superior one third of the glenoid with some comminution.I do not think that he needs an ORIF of the glenoid at this point and can be treated conservatively in a sling withActive range of motion as tolerated. Positioning in the operating roomDuring reduction of his facial fractureShould avoid abduction of the right shoulder greater than 90 degrees and ideally would be internal rotation in neutral position of the right shoulder. (Alin Delgadillo) Plan going forward is as follows: 1. Repeat head CT in a.m. to check for any interval increase in subdural hematoma 2. Continue respiratory therapy and daily chest x-ray to rule out pneumothorax 3. Continue ICU level of care with neuro checks 4. Patient with febrile episode overnight, panculture and will start empirically on antibiotics 5. We will discuss with OMFS operative intervention pending repeat head CT 6. PT OT with right upper extremity brace
[2020-07-30 22:02] LABS: BASOPHILS % (AUTO) 0.1 %; HGB - HEMOGLOBIN 11.1 g/dL (14.0-18.0); LYMPHOCYTES # (AUTO) 0.6 10^3/uL (1.5-3.5); LYMPHOCYTES % (AUTO) 4.2 %; MEAN CORPUSCULAR HEMOGLOBIN 31.9 pg (27.0-31.0); MEAN CORPUSCULAR HGB CONC 32.9 g/dL (32.0-36.0); MEAN CORPUSCULAR VOLUME 96.8 fL (80.0-94.0); NEUTROPHILS # (AUTO) 12.4 10^3/uL (1.5-6.6); NEUTROPHILS % (AUTO) 88.3 %; PLT - PLATELET COUNT 170 10^3/uL (130-450); RED BLOOD COUNT 3.48 10^6/uL (4.70-6.10); RED CELL DISTRIBUTION WIDTH 12.8 % (12.0-15.0); WHITE BLOOD COUNT 14.1 x10^3/uL (4.8-10.8)
[2020-07-30 22:15] LABS: ALBUMIN 3.7 g/dL (3.2-5.5); ALBUMIN/GLOBULIN RATIO 1.2 (1.0-2.2); BILIRUBIN,TOTAL 0.8 mg/dL (0.2-1.0); CALCIUM 8.9 mg/dL (8.5-10.3); CREATININE 0.9 mg/dL (0.6-1.2); TOTAL PROTEIN 6.9 g/dL (6.7-8.2)
[2020-07-31] MEDS: HYDROmorphone 0.5 MG/0.5 ML SYRINGE IVP PRN ×6 (00:03→23:10)
[2020-07-31] MEDS: D5NS W/20 MEQ KCL 1,000 ML IV SCH ×3 (00:05→17:13)
[2020-07-31] MEDS: SODIUM CHLORIDE FLUSH 0.9% 10 ML SYRINGE IVP SCH ×3 (03:49→18:27)
[2020-07-31 05:09] LABS: BASOPHILS % (AUTO) 0.2 %; HGB - HEMOGLOBIN 10.2 g/dL (14.0-18.0); LYMPHOCYTES # (AUTO) 0.8 10^3/uL (1.5-3.5); LYMPHOCYTES % (AUTO) 7.7 %; MEAN CORPUSCULAR HEMOGLOBIN 32.2 pg (27.0-31.0); MEAN CORPUSCULAR HGB CONC 32.7 g/dL (32.0-36.0); MEAN CORPUSCULAR VOLUME 98.4 fL (80.0-94.0); MEAN PLATELET VOLUME 10.1 fL (7.4-11.4); NEUTROPHILS # (AUTO) 8.9 10^3/uL (1.5-6.6); NEUTROPHILS % (AUTO) 82.5 %; PLT - PLATELET COUNT 139 10^3/uL (130-450); RED BLOOD COUNT 3.17 10^6/uL (4.70-6.10); RED CELL DISTRIBUTION WIDTH 12.7 % (12.0-15.0); WHITE BLOOD COUNT 10.8 x10^3/uL (4.8-10.8)
[2020-07-31 05:23] LABS: ALBUMIN 3.3 g/dL (3.2-5.5); ALBUMIN/GLOBULIN RATIO 1.1 (1.0-2.2); BILIRUBIN,TOTAL 0.7 mg/dL (0.2-1.0); CALCIUM 8.9 mg/dL (8.5-10.3); CREATININE 0.9 mg/dL (0.6-1.2); TOTAL PROTEIN 6.2 g/dL (6.7-8.2)
[2020-07-31] MEDS: methocarbamoL 500 MG TABLET PO SCH ×4 (05:27→23:10)
[2020-07-31] MEDS: PANTOPRAZOLE 40 MG VIAL IVP SCH (06:30)
--- NOTE | 2020-07-31 08:29 | XRAY Report ---
PROCEDURE: Chest 1 View X-Ray INDICATIONS: febrile TECHNIQUE: One view of the chest was acquired. COMPARISON: Single view chest 07/30/[address] scan chest 07/29/2020 FINDINGS: Surgical changes and devices: Cervical spine fixation hardware. Lungs and pleura: No pleural effusions or pneumothorax. Lungs are clear. Mediastinum: Mediastinal contours appear normal. Heart size is normal. Bones and chest wall: Displaced right glenoid fracture stable compared to prior exams. Overlying soft tissues appear unremarkable. IMPRESSION: No acute cardiopulmonary disease process. Reviewed by: Penny White MD, PhD on 07/31/2020 8:28 AM PDT Approved by: Penny White MD, PhD on 07/31/2020 8:28 AM PDT Station ID: [id number]
--- NOTE | 2020-07-31 09:02 | XRAY Report ---
PROCEDURE: Chest 1 View X-Ray INDICATIONS: evaluate for PTX in setting of rib fx TECHNIQUE: One view of the chest was acquired. COMPARISON: Similar chest plain film one day earlier reviewed FINDINGS: Surgical changes and devices: None. Lungs and pleura: No pleural effusions or pneumothorax. Lungs are less well evaluated also present on chest CT scanning from 07/29/2020. Mediastinum: Mediastinal contours appear normal. Heart size is normal. Bones and chest wall: No suspicious bony lesions. Overlying soft tissues appear unremarkable. IMPRESSION: Reduced inspiratory volume. The patient has a prior chest CT from 08/08/2020 documenting a lower later al rib fracture. This cannot be seen by plain film. No pneumothorax is suspected. The elevation of th e right hemidiaphragm when compared to that on the left may reflect splinting related to posttraumati c pain. A subpulmonic pleural effusion is not suspected in that area given the same appearance on CT scanning where no significant effusion was present. Reviewed by: Cedric Jones MD on 07/31/2020 9:01 AM PDT Approved by: Cedric Jones MD on 07/31/2020 9:01 AM PDT Station ID: [id number]
--- NOTE | 2020-07-31 09:25 | CT Report ---
PROCEDURE: HEAD WO INDICATIONS: evaluate for SDH TECHNIQUE: Noncontrast 4.5 mm thick angled axial sections acquired from the foramen magnum to the vertex. For r adiation dose reduction, the following was used: automated exposure control, adjustment of mA and/or kV according to patient size. COMPARISON: None. FINDINGS: Image quality: Excellent. CSF spaces: Basal cisterns are patent. No extra-axial fluid collections. Ventricles are normal in size and shape. Note is made of a thin band of blood products lateral to the right temporal lobe ant eriorly, with resolution of pneumocephalus in this area and elsewhere. The amount of pneumocephalus p reviously had been scanned, and is no longer seen. No increasing subdural hemorrhage is found, no epi dural hemorrhage is identified. Brain: No midline shift. No intracranial masses but within the left posterior parietal brain parenc hyma there is a finding suggestive of hemorrhagic injury, seen as a faint elevated radiodensity withi n the subcortical white matter, best seen visualized centered on CT series 3 image 19 and slightly mo re inferiorly within the gyrus on series 3 image 17.. [place]-white matter interface is mildly abnormal in those 2 areas, immediately adjacent, and no significant mass effect has developed as a result. Skull and face: Calvarium and visualized facial bones fractures are again noted, and the lateral wal l right maxillary sinus and zygomatic arch fracture on the right appears accompanied by a nondisplace d fracture or diastases of the right lateral superior orbital rim suture, indicating presence of a "t ripod fracture" at that site. Sinuses: Visualized sinuses and mastoids are unchanged, containing high density fluid in the right m axillary sinus and sphenoid sinus indicating blood products. IMPRESSION: 1. Resolution of scattered pneumocephalus, no increase in right middle cranial fossa small subdural h emorrhage causing no mass effect. 2. A mild degree of brain parenchymal hemorrhage appears present within the posterior left temporal r egion, contrecoup injury, without mass effect. This likely was previously present but very subtle, an d more easily visualized by the current study due to slight adjacent edema. Again, no significant mas s effect. This area could be more accurately assessed with MR scanning. 3. Suspected traumatic diastases of the lateral superior orbital rim suture on the right in conjunct ion with zygomatic arch fracture and lateral right maxillary sinus fracture, establishing CT criteria for diagnosis of "tripod fracture". Right calvarial fracture again noted, nondisplaced. Stable maxil adair and sphenoid sinus intraluminal hemorrhage. Reviewed by: Cedric Jones MD on 07/31/2020 9:24 AM PDT Approved by: Cedric Jones MD on 07/31/2020 9:24 AM PDT Station ID: [id number]
[2020-07-31] MEDS: ACETAMINOPHEN 1,000 MG/100 ML 100 ML IV PRN ×3 (09:31→21:38)
[2020-07-31] MEDS ORDERED: PIPERACILLIN/TAZOBACTAM 3.375 GM in SODIUM CHLORIDE 0.9% MINIBAG 100 ML IV ONE (10:00)
[2020-07-31] MEDS ORDERED: LIDOCAINE MPF 2%-EPI 1:200000 20 ML VIAL ONE (10:11)
[2020-07-31] MEDS ORDERED: OXYMETAZOLINE HCL 100 SPRAYS BOTTLE NAS ONE (10:21)
[2020-07-31] MEDS ORDERED: CHLORHEXIDINE GLUCONATE 15 ML UDC PO ONE ×2 (10:27→13:42)
[2020-07-31] MEDS ORDERED: ONDANSETRON 4 MG/2 ML VIAL IVP PRN (11:03)
[2020-07-31] MEDS ORDERED: MORPHINE 2 MG/ML CARPUJECT IVP PRN (11:03)
[2020-07-31] MEDS ORDERED: fentaNYL 100 MCG/2 ML VIAL IVP PRN (11:03)
[2020-07-31] MEDS ORDERED: NALOXONE 0.4 MG/ML VIAL IVP PRN (11:03)
[2020-07-31] MEDS ORDERED: ePHEDrine 50 MG/ML VIAL IVP PRN (11:03)
[2020-07-31] MEDS ORDERED: METOCLOPRAMIDE 10 MG/2 ML VIAL IVP PRN (11:03)
[2020-07-31] MEDS ORDERED: ATROPINE ABBOJECT 1 MG/10 ML SYRINGE IVP PRN (11:03)
[2020-07-31] MEDS ORDERED: HYDROmorphone 0.5 MG/0.5 ML SYRINGE IVP PRN (11:03)
--- NOTE | 2020-07-31 11:06 | ANESTHESIA ---
Pre-Anesthesia VS, & Labs - Diagnosis Diagnosis Right zygomaticomaxillary fracture - Procedure R zygomatic arch ORIF Vital Signs: Temp Pulse Resp BP Pulse Ox 37.8 C H 53 L 14 140/73 H 93 07/31/20 08:00 07/31/20 09:40 07/31/20 09:40 07/31/20 08:48 07/31/20 08:48 Height 5 ft 9 in Weight (kg) 75 kg Body Mass Index 24.7 - Lab Results Current Lab Results: Laboratory Tests 07/31/20 04:55: Sodium 143, Potassium 4.6, Chloride 107, Carbon Dioxide 27, Anion Gap 9.0, BUN 17, Creatinine 0.9, Estimated GFR (MDRD) 84 L, Glucose 123 H, Calcium 8.9, Total Bilirubin 0.7, AST 76 H, ALT 35, Alkaline Phosphatase 44, Total Protein 6.2 L, Albumin 3.3, Globulin 2.9, Albumin/Globulin Ratio 1.1 07/31/20 04:55: WBC 10.8, RBC 3.17 L, Hgb 10.2 L, Hct 31.2 L, MCV 98.4 H, MCH 32.2 H, MCHC 32.7, RDW 12.7, Plt Count 139, MPV 10.1, Neut # (Auto) 8.9 H, Lymph # (Auto) 0.8 L, [place] # (Auto) 1.0, Eos # (Auto) 0.0, Baso # (Auto) 0.0, Absolute Nucleated RBC 0.00, Nucleated RBC % 0.0 07/30/20 23:57: POC Whole Bld Glucose 128 H 07/30/20 21:51: Sodium 139, Potassium 3.9, Chloride 106, Carbon Dioxide 20 L, Anion Gap 13.0, BUN 19, Creatinine 0.9, Estimated GFR (MDRD) 84 L, Glucose 154 H , Calcium 8.9, Total Bilirubin 0.8, AST 89 H, ALT 38, Alkaline Phosphatase 50, Total Protein 6.9, Albumin 3.7, Globulin 3.2, Albumin/Globulin Ratio 1.2 07/30/20 21:51: WBC 14.1 H, RBC 3.48 L, Hgb 11.1 L, Hct 33.7 L, MCV 96.8 H, MCH 31.9 H, MCHC 32.9, RDW 12.8, Plt Count 170, MPV 10.0, Neut # (Auto) 12.4 H, Lymph # (Auto) 0.6 L, [place] # (Auto) 1.0, Eos # (Auto) 0.0, Baso # (Auto) 0.0, Absolute Nucleated RBC 0.00, Nucleated RBC % 0.0 07/30/20 18:06: POC Whole Bld Glucose 134 H 07/30/20 12:21: POC Whole Bld Glucose 144 H 07/30/20 06:28: POC Whole Bld Glucose 160 H 07/29/20 23:48: POC Whole Bld Glucose 177 H 07/29/20 16:36: Troponin I High Sens 10.3 07/29/20 12:25: Sodium 139, Potassium 3.7, Chloride 102, Carbon Dioxide 24, Anion Gap 13.0, BUN 30 H, Creatinine 1.1, Estimated GFR (MDRD) 67 L, Glucose 139 H, Calcium 9.8, Total Bilirubin 0.8, AST 71 H, ALT 35, Alkaline Phosphatase 64, Total Protein 8.0, Albumin 4.4, Globulin 3.6, Albumin/Globulin Ratio 1.2, Lipase 28 07/29/20 12:25: PT 13.3 H, INR 1.2 07/29/20 12:25: WBC 17.1 H, RBC 4.22 L, Hgb 13.6 L, Hct 40.3 L, MCV 95.5 H, MCH 32.2 H, MCHC 33.7, RDW 12.5, Plt Count 232, MPV 10.2, Neut # (Auto) 15.9 H, Ly mph # (Auto) 0.5 L, [place] # (Auto) 0.5, Eos # (Auto) 0.0, Baso # (Auto) 0.1, Absolute Nucleated RBC 0.00, Nucleated RBC % 0.0 Fish Bones: 07/31/20 04:55 07/31/20 04:55 Home Medications and Allergies Home Medications: Ambulatory Orders hydroCHLOROthiazide [Hydrochlorothiazide] 25 mg PO DAILY 07/29/20 lisinopriL [Lisinopril] 10 mg PO DAILY 07/29/20 Active Medications Albuterol/Ipratropium (Duoneb) 3 ml INH RTQID PRN PRN Reason: Wheezing Fentanyl (Fentanyl) 25 - 50 mcg IVP Q5M PRN PRN Reason: BREAKTHROUGH PAIN (2nd Choice) Stop: 08/01/20 11:04 Hydromorphone HCl (Dilaudid Inj Syringe) 0.5 mg IVP Q2H PRN PRN Reason: Pain 8 to 10 Last Admin: 07/31/20 08:22 Dose: 0.5 mg Documented by: Potassium Chloride/Dextrose/Sod Cl () 1,000 mls @ 125 mls/hr IV .Q8H [facility] Last Infusion: 07/31/20 09:11 Dose: 125 mls/hr Documented by: Acetaminophen (Ofirmev) 100 mls @ 400 mls/hr IV Q6HR PRN PRN Reason: PAIN Last Admin: 07/31/20 09:31 Dose: 400 mls/hr Documented by: Piperacillin Sod/Tazobactam (Sod 3.375 gm/ Sodium Chloride) 100 mls @ 25 mls/hr IV Q8H [facility] Lactated Ringer's (Lr) 1,000 mls @ 100 mls/hr IV .Q10H [facility] Stop: 07/31/20 21:59 Methocarbamol (Robaxin) 500 mg PO Q6HR [facility] Last Admin: 07/31/20 05:27 Dose: Not Given Documented by: Metoclopramide HCl (Reglan Inj) 10 mg IVP Q6HR PRN PRN Reason: Nausea / Vomiting Ondansetron HCl (Zofran Inj) 4 mg IVP Q6HR PRN PRN Reason: Nausea / Vomiting Pantoprazole Sodium (Protonix) 40 mg IVP QDAC [facility] Last Admin: 07/31/20 06:30 Dose: 40 mg Documented by: Sodium Chloride (Normal Saline Flush 0.9%) 10 ml IVP 0100,0900,1700 [facility] Last Admin: 07/31/20 09:33 Dose: Not Given Documented by: Sodium Chloride (Normal Saline Flush 0.9%) 10 ml IVP PRN PRN PRN Reason: NEEDED PER PROVIDER ORDERS hydroCHLOROthiazide [Hydrochlorothiazide] 25 mg PO DAILY 07/29/20 lisinopriL [Lisinopril] 10 mg PO DAILY 07/29/20 Allergies/Adverse Reactions: Allergies Allergy/AdvReac Type Severity Reaction Status Date / Time No Known Drug Allergies Allergy Verified 07/29/20 12:16 Anes History & Medical History - Anesthetic History Anesthesia Complications: reports: No previous complications Family history of Anesthesia Complications: Denies Family history of Malignant Hyperthermia: Denies - Medical History Cardiovascular: reports: None Pulmonary: reports: None Gastrointestinal: reports: Hepatitis Urinary: reports: None Neuro: reports: None Musculoskeletal: reports: Chronic back pain, Other (History of C-spine fixation/surgery, minor limitation of rotation, good extension) Endocrine/Autoimmune: reports: None Skin: reports: None Smoking Status: Never smoker - Surgical History General: Appendectomy Orthopedic: Spine surgery Dermatologic: Other Plan Anesthesia Type: General Consent for Procedure(s) Verified and Reviewed: Yes Code Status: Attempt Resuscitation ASA classification: 2-Mild systemic disease Is this case an emergency?: No
[2020-07-31] MEDS ORDERED: LACTATED RINGERS 1,000 ML IV SCH (12:00)
[2020-07-31] MEDS ORDERED: LIDOCAINE 2%-EPI 1:100000 20 ML MDV ONE (12:22)
[2020-07-31] MEDS ORDERED: PROPOFOL 200 MG/20 ML VIAL IVP ONE (12:32)
[2020-07-31] MEDS ORDERED: ONDANSETRON 4 MG/2 ML VIAL IVP ONE (12:32)
[2020-07-31] MEDS ORDERED: MIDAZOLAM 2 MG/2 ML VIAL IVP ONE (12:32)
[2020-07-31] MEDS ORDERED: GLYCOPYRROLATE 1 MG/5 ML VIAL IVP ONE (12:32)
[2020-07-31] MEDS ORDERED: fentaNYL 100 MCG/2 ML VIAL IVP ONE (12:32)
[2020-07-31] MEDS ORDERED: LIDOCAINE-MPF 2% 5 ML VIAL IM ONE (12:32)
[2020-07-31] MEDS ORDERED: ePHEDrine 50 MG/ML VIAL IVP ONE (12:32)
[2020-07-31] MEDS ORDERED: MINERAL OIL/PETROLAT OPHTH OINT ONE (12:59)
[2020-07-31 13:14] LABS: BILIRUBIN,URINE NEGATIVE (NEGATIVE); GLUCOSE, URINE (UA) NEGATIVE (NEGATIVE); KETONES,URINE (UA) NEGATIVE (NEGATIVE); LEUKOCYTE ESTERASE, URINE NEGATIVE (NEGATIVE); NITRITE,URINE NEGATIVE (NEGATIVE); OCCULT BLOOD,URINE NEGATIVE (NEGATIVE); PROTEIN,URINE NEGATIVE (NEGATIVE); UROBILINOGEN,URINE 0.2 (NORMAL) E.U./dL (NORMAL)
[2020-07-31 13:15] LABS: CLARITY,URINE CLEAR (CLEAR)
[2020-07-31] MEDS ORDERED: LIDOCAINE 2%-EPI 1:100000 20 ML MDV SUBQ ONE ×2 (13:42)
[2020-07-31] MEDS ORDERED: BACITRACIN ZINC OINT 14 GM TOP ONE (14:45)
[2020-07-31] MEDS ORDERED: KETOROLAC 0.45% OPHTH DROPS RIGHTEYE PRN (15:07)
--- NOTE | 2020-07-31 15:14 | PROVIDER PROGRESS NOTE ---
Subjective - Prog Note Date Prog Note Date: 07/31/20 Prog Note Time: 15:12 - Subjective Pt reports feeling: No change (No events overnight. CT head: no increase in intracranial hemorrhage NPO for surgery) Objective - Vital Signs/Intake & Output Reviewed Vital Signs: Yes Vital Signs: Vital Signs x48h Temp Pulse Pulse Resp BP BP Pulse Ox 07/31/20 15:01 36.8 C 60 24 102/60 99 07/31/20 12:30 42 L 11 L 123/71 97 07/31/20 11:27 40 L 12 117/70 96 07/31/20 09:40 53 L 14 07/31/20 08:48 48 L 16 140/73 H 93 07/31/20 08:00 37.8 C H 50 L 12 122/78 96 Intake & Output: Intake & Output 07/28/20 07/29/20 07/30/20 07/31/20 23:59 23:59 23:59 23:59 Intake Total 1050 3206.667 2345.417 Output Total 300 280 Balance 1050 2906.667 2065.417 - Objective General Appearance: positive: No acute distress, Alert Eyes Bilateral: positive: PERRL, EOMI, Other (subconjunctival hemorrhage stable. Decreasing chemosis. R periorbital edema and ecchymosis stable. No proptosis. No diplopia) ENT: positive: Other (Bruising of the R maxillary vestibule.) - Lab Results Fish Bones: 07/31/20 04:55 07/31/20 04:55 Other Labs: Lab Results x24hrs 07/31/20 07/31/20 07/31/20 Range/Units 12:11 12:10 04:55 WBC (4.8-10.8) x10^3/uL RBC (4.70-6.10) 10^6/uL Hgb (14.0-18.0) g/dL Hct (42.0-52.0) % MCV (80.0-94.0) fL MCH (27.0-31.0) pg MCHC (32.0-36.0) g/dL RDW (12.0-15.0) % Plt Count (130-450) 10^3/uL MPV (7.4-11.4) fL Neut # (Auto) (1.5-6.6) 10^3/uL Lymph # (Auto) (1.5-3.5) 10^3/uL [place] # (Auto) (0.0-1.0) 10^3/uL Eos # (Auto) (0.0-0.7) 10^3/uL Baso # (Auto) (0.0-0.1) 10^3/uL Absolute Nucleated RBC x10^3/uL Nucleated RBC % /100WBC Sodium 143 (135-145) mmol/L Potassium 4.6 (3.5-5.0) mmol/L Chloride 107 (101-111) mmol/L Carbon Dioxide 27 (21-32) mmol/L Anion Gap 9.0 (6-13) BUN 17 (6-20) mg/dL Creatinine 0.9 (0.6-1.2) mg/dL Estimated GFR (MDRD) 84 L (>89) Glucose 123 H (70-100) mg/dL POC Whole Bld Glucose 123 H (70 - 100) mg/dL Calcium 8.9 (8.5-10.3) mg/dL Total Bilirubin 0.7 (0.2-1.0) mg/dL AST 76 H (10-42) IU/L ALT 35 (10-60) IU/L Alkaline Phosphatase 44 (42-121) IU/L Total Protein 6.2 L (6.7-8.2) g/dL Albumin 3.3 (3.2-5.5) g/dL Globulin 2.9 (2.1-4.2) g/dL Albumin/Globulin Ratio 1.1 (1.0-2.2) Urine Color YELLOW Urine Clarity CLEAR (CLEAR) Urine pH 6.0 (5.0-7.5) PH Ur Specific [place] 1.025 (1.002-1.030) Urine Protein NEGATIVE (NEGATIVE) mg/dL Urine Glucose (UA) NEGATIVE (NEGATIVE) mg/dL Urine Ketones NEGATIVE (NEGATIVE) mg/dL Urine Occult Blood NEGATIVE (NEGATIVE) Urine Nitrite NEGATIVE (NEGATIVE) Urine Bilirubin NEGATIVE (NEGATIVE) Urine Urobilinogen 0.2 (NORMAL) (NORMAL) E.U./dL Ur Leukocyte Esterase NEGATIVE (NEGATIVE) Ur Microscopic Review NOT INDICATED 07/31/20 07/30/20 07/30/20 Range/Units 04:55 23:57 21:51 WBC 10.8 (4.8-10.8) x10^3/uL RBC 3.17 L (4.70-6.10) 10^6/uL Hgb 10.2 L (14.0-18.0) g/dL Hct 31.2 L (42.0-52.0) % MCV 98.4 H (80.0-94.0) fL MCH 32.2 H (27.0-31.0) pg MCHC 32.7 (32.0-36.0) g/dL RDW 12.7 (12.0-15.0) % Plt Count 139 (130-450) 10^3/uL MPV 10.1 (7.4-11.4) fL Neut # (Auto) 8.9 H (1.5-6.6) 10^3/uL Lymph # (Auto) 0.8 L (1.5-3.5) 10^3/uL [place] # (Auto) 1.0 (0.0-1.0) 10^3/uL Eos # (Auto) 0.0 (0.0-0.7) 10^3/uL Baso # (Auto) 0.0 (0.0-0.1) 10^3/uL Absolute Nucleated RBC 0.00 x10^3/uL Nucleated RBC % 0.0 /100WBC Sodium 139 (135-145) mmol/L Potassium 3.9 (3.5-5.0) mmol/L Chloride 106 (101-111) mmol/L Carbon Dioxide 20 L (21-32) mmol/L Anion Gap 13.0 (6-13) BUN 19 (6-20) mg/dL Creatinine 0.9 (0.6-1.2) mg/dL Estimated GFR (MDRD) 84 L (>89) Glucose 154 H (70-100) mg/dL POC Whole Bld Glucose 128 H (70 - 100) mg/dL Calcium 8.9 (8.5-10.3) mg/dL Total Bilirubin 0.8 (0.2-1.0) mg/dL AST 89 H (10-42) IU/L ALT 38 (10-60) IU/L Alkaline Phosphatase 50 (42-121) IU/L Total Protein 6.9 (6.7-8.2) g/dL Albumin 3.7 (3.2-5.5) g/dL Globulin 3.2 (2.1-4.2) g/dL Albumin/Globulin Ratio 1.2 (1.0-2.2) Urine Color Urine Clarity (CLEAR) Urine pH (5.0-7.5) PH Ur Specific [place] (1.002-1.030) Urine Protein (NEGATIVE) mg/dL Urine Glucose (UA) (NEGATIVE) mg/dL Urine Ketones (NEGATIVE) mg/dL Urine Occult Blood (NEGATIVE) Urine Nitrite (NEGATIVE) Urine Bilirubin (NEGATIVE) Urine Urobilinogen (NORMAL) E.U./dL Ur Leukocyte Esterase (NEGATIVE) Ur Microscopic Review 07/30/20 07/30/20 Range/Units 21:51 18:06 WBC 14.1 H (4.8-10.8) x10^3/uL RBC 3.48 L (4.70-6.10) 10^6/uL Hgb 11.1 L (14.0-18.0) g/dL Hct 33.7 L (42.0-52.0) % MCV 96.8 H (80.0-94.0) fL MCH 31.9 H (27.0-31.0) pg MCHC 32.9 (32.0-36.0) g/dL RDW 12.8 (12.0-15.0) % Plt Count 170 (130-450) 10^3/uL MPV 10.0 (7.4-11.4) fL Neut # (Auto) 12.4 H (1.5-6.6) 10^3/uL Lymph # (Auto) 0.6 L (1.5-3.5) 10^3/uL [place] # (Auto) 1.0 (0.0-1.0) 10^3/uL Eos # (Auto) 0.0 (0.0-0.7) 10^3/uL Baso # (Auto) 0.0 (0.0-0.1) 10^3/uL Absolute Nucleated RBC 0.00 x10^3/uL Nucleated RBC % 0.0 /100WBC Sodium (135-145) mmol/L Potassium (3.5-5.0) mmol/L Chloride (101-111) mmol/L Carbon Dioxide (21-32) mmol/L Anion Gap (6-13) BUN (6-20) mg/dL Creatinine (0.6-1.2) mg/dL Estimated GFR (MDRD) (>89) Glucose (70-100) mg/dL POC Whole Bld Glucose 134 H (70 - 100) mg/dL Calcium (8.5-10.3) mg/dL Total Bilirubin (0.2-1.0) mg/dL AST (10-42) IU/L ALT (10-60) IU/L Alkaline Phosphatase (42-121) IU/L Total Protein (6.7-8.2) g/dL Albumin (3.2-5.5) g/dL Globulin (2.1-4.2) g/dL Albumin/Globulin Ratio (1.0-2.2) Urine Color Urine Clarity (CLEAR) Urine pH (5.0-7.5) PH Ur Specific [place] (1.002-1.030) Urine Protein (NEGATIVE) mg/dL Urine Glucose (UA) (NEGATIVE) mg/dL Urine Ketones (NEGATIVE) mg/dL Urine Occult Blood (NEGATIVE) Urine Nitrite (NEGATIVE) Urine Bilirubin (NEGATIVE) Urine Urobilinogen (NORMAL) E.U./dL Ur Leukocyte Esterase (NEGATIVE) Ur Microscopic Review Sepsis Event Note (H) - Evaluation Current Stage of Sepsis: Ruled out Assessment/Plan - Problem List (1) Facial bone fracture Impression: 69 yo M w/ R [facility] fx Surgery today, no complications. Able to acheive good stability of the zygoma. OK for d/c to home from OMFS standpoint. F/u in one week in office Leonides Shaikh DDS [phone] Qualifiers: Encounter type: initial encounter Facial bone/location: malar bone Fracture type: open Laterality: right Qualified Code(s): S02.40AB - Malar f racture, right side, initial encounter for open fracture
--- NOTE | 2020-07-31 15:39 | PROVIDER PROGRESS NOTE ---
Objective - Vital Signs/Intake & Output Vital Signs: Vital Signs x48h Temp Pulse Pulse Resp BP BP Pulse Ox 07/31/20 15:01 36.8 C 60 24 102/60 99 07/31/20 12:30 42 L 11 L 123/71 97 07/31/20 11:27 40 L 12 117/70 96 07/31/20 09:40 53 L 14 07/31/20 08:48 48 L 16 140/73 H 93 07/31/20 08:00 37.8 C H 50 L 12 122/78 96 Intake & Output: Intake & Output 07/28/20 07/29/20 07/30/20 07/31/20 23:59 23:59 23:59 23:59 Intake Total 1050 3206.667 2345.417 Output Total 300 280 Balance 1050 2906.667 2065.417 - Lab Results Fish Bones: 07/31/20 04:55 07/31/20 04:55 Other Labs: Lab Results x24hrs 07/31/20 07/31/20 07/31/20 Range/Units 12:11 12:10 04:55 WBC (4.8-10.8) x10^3/uL RBC (4.70-6.10) 10^6/uL Hgb (14.0-18.0) g/dL Hct (42.0-52.0) % MCV (80.0-94.0) fL MCH (27.0-31.0) pg MCHC (32.0-36.0) g/dL RDW (12.0-15.0) % Plt Count (130-450) 10^3/uL MPV (7.4-11.4) fL Neut # (Auto) (1.5-6.6) 10^3/uL Lymph # (Auto) (1.5-3.5) 10^3/uL [place] # (Auto) (0.0-1.0) 10^3/uL Eos # (Auto) (0.0-0.7) 10^3/uL Baso # (Auto) (0.0-0.1) 10^3/uL Absolute Nucleated RBC x10^3/uL Nucleated RBC % /100WBC Sodium 143 (135-145) mmol/L Potassium 4.6 (3.5-5.0) mmol/L Chloride 107 (101-111) mmol/L Carbon Dioxide 27 (21-32) mmol/L Anion Gap 9.0 (6-13) BUN 17 (6-20) mg/dL Creatinine 0.9 (0.6-1.2) mg/dL Estimated GFR (MDRD) 84 L (>89) Glucose 123 H (70-100) mg/dL POC Whole Bld Glucose 123 H (70 - 100) mg/dL Calcium 8.9 (8.5-10.3) mg/dL Total Bilirubin 0.7 (0.2-1.0) mg/dL AST 76 H (10-42) IU/L ALT 35 (10-60) IU/L Alkaline Phosphatase 44 (42-121) IU/L Total Protein 6.2 L (6.7-8.2) g/dL Albumin 3.3 (3.2-5.5) g/dL Globulin 2.9 (2.1-4.2) g/dL Albumin/Globulin Ratio 1.1 (1.0-2.2) Urine Color YELLOW Urine Clarity CLEAR (CLEAR) Urine pH 6.0 (5.0-7.5) PH Ur Specific [place] 1.025 (1.002-1.030) Urine Protein NEGATIVE (NEGATIVE) mg/dL Urine Glucose (UA) NEGATIVE (NEGATIVE) mg/dL Urine Ketones NEGATIVE (NEGATIVE) mg/dL Urine Occult Blood NEGATIVE (NEGATIVE) Urine Nitrite NEGATIVE (NEGATIVE) Urine Bilirubin NEGATIVE (NEGATIVE) Urine Urobilinogen 0.2 (NORMAL) (NORMAL) E.U./dL Ur Leukocyte Esterase NEGATIVE (NEGATIVE) Ur Microscopic Review NOT INDICATED 07/31/20 07/30/20 07/30/20 Range/Units 04:55 23:57 21:51 WBC 10.8 (4.8-10.8) x10^3/uL RBC 3.17 L (4.70-6.10) 10^6/uL Hgb 10.2 L (14.0-18.0) g/dL Hct 31.2 L (42.0-52.0) % MCV 98.4 H (80.0-94.0) fL MCH 32.2 H (27.0-31.0) pg MCHC 32.7 (32.0-36.0) g/dL RDW 12.7 (12.0-15.0) % Plt Count 139 (130-450) 10^3/uL MPV 10.1 (7.4-11.4) fL Neut # (Auto) 8.9 H (1.5-6.6) 10^3/uL Lymph # (Auto) 0.8 L (1.5-3.5) 10^3/uL [place] # (Auto) 1.0 (0.0-1.0) 10^3/uL Eos # (Auto) 0.0 (0.0-0.7) 10^3/uL Baso # (Auto) 0.0 (0.0-0.1) 10^3/uL Absolute Nucleated RBC 0.00 x10^3/uL Nucleated RBC % 0.0 /100WBC Sodium 139 (135-145) mmol/L Potassium 3.9 (3.5-5.0) mmol/L Chloride 106 (101-111) mmol/L Carbon Dioxide 20 L (21-32) mmol/L Anion Gap 13.0 (6-13) BUN 19 (6-20) mg/dL Creatinine 0.9 (0.6-1.2) mg/dL Estimated GFR (MDRD) 84 L (>89) Glucose 154 H (70-100) mg/dL POC Whole Bld Glucose 128 H (70 - 100) mg/dL Calcium 8.9 (8.5-10.3) mg/dL Total Bilirubin 0.8 (0.2-1.0) mg/dL AST 89 H (10-42) IU/L ALT 38 (10-60) IU/L Alkaline Phosphatase 50 (42-121) IU/L Total Protein 6.9 (6.7-8.2) g/dL Albumin 3.7 (3.2-5.5) g/dL Globulin 3.2 (2.1-4.2) g/dL Albumin/Globulin Ratio 1.2 (1.0-2.2) Urine Color Urine Clarity (CLEAR) Urine pH (5.0-7.5) PH Ur Specific [place] (1.002-1.030) Urine Protein (NEGATIVE) mg/dL Urine Glucose (UA) (NEGATIVE) mg/dL Urine Ketones (NEGATIVE) mg/dL Urine Occult Blood (NEGATIVE) Urine Nitrite (NEGATIVE) Urine Bilirubin (NEGATIVE) Urine Urobilinogen (NORMAL) E.U./dL Ur Leukocyte Esterase (NEGATIVE) Ur Microscopic Review 07/30/20 07/30/20 Range/Units 21:51 18:06 WBC 14.1 H (4.8-10.8) x10^3/uL RBC 3.48 L (4.70-6.10) 10^6/uL Hgb 11.1 L (14.0-18.0) g/dL Hct 33.7 L (42.0-52.0) % MCV 96.8 H (80.0-94.0) fL MCH 31.9 H (27.0-31.0) pg MCHC 32.9 (32.0-36.0) g/dL RDW 12.8 (12.0-15.0) % Plt Count 170 (130-450) 10^3/uL MPV 10.0 (7.4-11.4) fL Neut # (Auto) 12.4 H (1.5-6.6) 10^3/uL Lymph # (Auto) 0.6 L (1.5-3.5) 10^3/uL [place] # (Auto) 1.0 (0.0-1.0) 10^3/uL Eos # (Auto) 0.0 (0.0-0.7) 10^3/uL Baso # (Auto) 0.0 (0.0-0.1) 10^3/uL Absolute Nucleated RBC 0.00 x10^3/uL Nucleated RBC % 0.0 /100WBC Sodium (135-145) mmol/L Potassium (3.5-5.0) mmol/L Chloride (101-111) mmol/L Carbon Dioxide (21-32) mmol/L Anion Gap (6-13) BUN (6-20) mg/dL Creatinine (0.6-1.2) mg/dL Estimated GFR (MDRD) (>89) Glucose (70-100) mg/dL POC Whole Bld Glucose 134 H (70 - 100) mg/dL Calcium (8.5-10.3) mg/dL Total Bilirubin (0.2-1.0) mg/dL AST (10-42) IU/L ALT (10-60) IU/L Alkaline Phosphatase (42-121) IU/L Total Protein (6.7-8.2) g/dL Albumin (3.2-5.5) g/dL Globulin (2.1-4.2) g/dL Albumin/Globulin Ratio (1.0-2.2) Urine Color Urine Clarity (CLEAR) Urine pH (5.0-7.5) PH Ur Specific [place] (1.002-1.030) Urine Protein (NEGATIVE) mg/dL Urine Glucose (UA) (NEGATIVE) mg/dL Urine Ketones (NEGATIVE) mg/dL Urine Occult Blood (NEGATIVE) Urine Nitrite (NEGATIVE) Urine Bilirubin (NEGATIVE) Urine Urobilinogen (NORMAL) E.U./dL Ur Leukocyte Esterase (NEGATIVE) Ur Microscopic Review Sepsis Event Note (H) - Evaluation Current Stage of Sepsis: Ruled out Assessment/Plan - Problem List (1) Facial bone fracture Impression: Postop vision check: OD - no vision loss. No diplopia. No proptosis. No entrapment. Qualifiers: Encounter type: initial encounter Facial bone/location: malar bone Fracture type: open Laterality: right Qualified Code(s): S02.40AB - Malar fracture, right side, initial encounter for open fracture
[2020-07-31] MEDS: SODIUM CHLORIDE 0.9% 1,000 ML IV SCH (15:55)
[2020-07-31] MEDS: PIPERACILLIN/TAZOBACTAM 3.375 GM in SODIUM CHLORIDE 0.9% MINIBAG 100 ML IV SCH ×2 (16:30→21:37)
[2020-07-31] MEDS ORDERED: DEXAMETHASONE 10 MG/ML VIAL IVP ONE (16:30)
--- NOTE | 2020-07-31 17:21 | OPERATIVE REPORT ---
DATE OF SERVICE: 07/31/2020 Physician: Leonides Shaikh DDS PROCEDURE PERFORMED: Open reduction and internal fixation of the right zygomaticomaxillary complex via multiple transfacial approach. PREOPERATIVE DIAGNOSIS: Comminution of the right zygomaticomaxillary complex. POSTOPERATIVE DIAGNOSIS: Comminution of the right zygomaticomaxillary complex. PRIMARY SURGEON: Leonides Shaikh DDS ANESTHESIA TYPE: General anesthesia via oral endotracheal intubation. Anesthesiologist: Ly Osorio COMPLICATIONS: None. ESTIMATED BLOOD LOSS: 10 mL INTRAVENOUS FLUIDS: 750 mL of normal saline. IMPLANTS: Biomet midface plates and screws were placed; 3 plates and 15 screws were placed. DRAINS, PACKS, CATHETERS: None. INDICATIONS FOR PROCEDURE: This is a 69-year-old male who fell off his roof and hit his face on the concrete. Clinical and radiographic examination was consistent with a right ZMC fracture, which was very comminuted and mobile. It was decided that open reduction and internal fixation of the right ZMC via multiple approaches was indicated. The risks, benefits and alternatives of this plan were discussed with patient including pain, swelling, bleeding, infection, malunion, nonunion, failed hardware, need for further surgery, damage to the eye with loss of vision, scarring, and poor cosmesis. Adequate time was given to answer all questions and informed consent was obtained. DESCRIPTION OF PROCEDURE: Patient was brought to the main operating room and placed in a supine position on the operating table. General anesthesia was induced by the anesthesia team, and the airway was secured with an oral endotracheal tube. All pressure points were padded and checked. A formal timeout was executed. Local anesthesia was achieved with 2% lidocaine with 1:100,000 epinephrine after patient was prepped and draped in the standard fashion for a facial surgery. Attention was directed intraorally to the right maxilla and an incision was made at the height of the vestibule taking care to protect the Stensen's duct. This incision was made through mucosa and down through periosteum. Subperiosteal dissection was performed, exposing the right maxilla up to the zygoma and easily encountering the fracture. The fracture pattern was found to be comminuted and stable bone was only found at the piriform area. The fractured segment was found to be very mobile and the bone was very thin and was very frail. After this area was exposed, a piece of gauze was placed to aid in hemostasis and attention was directed to the right eyebrow lateral orbital rim area. An incision was made about 1.5 cm through skin and down to bone. A #9 was used to perform subperiosteal dissection and the fracture was easily encountered. Attention was directed to the right eye. A scleral shield was placed with Lacri-Lube, and a transconjunctival incision was made with the Desmarres retractors retracting the eyelid gently and malleable retractors retracting the globe. The incision was carried through the conjunctiva and down to bone. Subperiosteal dissection was performed, exposing a displaced infraorbital rim fracture with a large step. At this point, both the extraoral incisions were packed with a single afrin-soaked cottonoid and attention was turned back to the inside of the mouth. It should be noted that at the beginning of the case a single Ray-Morteza was placed in the throat to use as a throat pack. The fracture was reduced and held into place with a urethral sound. With the fracture in place a long plate with multiple holes, spanning all the way from zygoma all the way over the piriform rim was placed and held into place with multiple screws. The screws had good bite and good purchase except for on the thin anterior maxillary wall where they had light purchase. Attention was then turned to the transconjunctival approach. A 4-hole plate was placed there after the fracture was reduced further. The way we reduced the fracture was by using a #9 periosteal elevator and first distracting the fracture slightly and then elevating the entire zygoma with a urethral sound. Once this plate was placed, the fractured segment had very little mobility. Attention was turned to the right lateral orbital rim area where the fracture was found to be well-reduced. A 4-hole plate was placed and the screws were found to have excellent purchase. All of the wounds were then irrigated with copious amounts of sterile saline. The right lateral rim was closed first using 4-0 Vicryl to reapproximate the periosteum and then to sew the deep layers and then 5-0 Prolene to reapproximate the skin. The condylar transconjunctival incision was closed next with a 4-0 Vicryl single suture to reapproximate the periosteum and then a 5-0 fast gut to reapproximate the conjunctiva in a running fashion. Attention was then directed intraorally and the intraoral wound was closed with 4-0 Vicryl suture. The patient's mouth was rinsed free of debris. The throat pack was removed. The patient's face was cleansed. The wounds were dressed with bacitracin and care of the patient was returned to the anesthesia team for uneventful emergence from anesthesia. He was transferred back to the ICU in stable condition. TD: 07/31/2020 15:35 STEVEN
[2020-07-31] MEDS: CHLORHEXIDINE GLUCONATE 15 ML UDC PO SCH (20:19)
[2020-07-31] MEDS: BENZOCAINE/MENTHOL LOZENGE MM PRN (20:32)
[2020-08-01] MEDS: D5NS W/20 MEQ KCL 1,000 ML IV SCH (00:01)
[2020-08-01] MEDS: SODIUM CHLORIDE FLUSH 0.9% 10 ML SYRINGE IVP SCH ×2 (00:01→09:52)
[2020-08-01] MEDS: SODIUM CHLORIDE 0.9% 1,000 ML IV SCH (02:47)
[2020-08-01] MEDS: HYDROmorphone 0.5 MG/0.5 ML SYRINGE IVP PRN ×4 (03:23→15:02)
[2020-08-01] MEDS: BENZOCAINE/MENTHOL LOZENGE MM PRN (03:23)
[2020-08-01 05:18] LABS: BASOPHILS % (AUTO) 0.2 %; HGB - HEMOGLOBIN 9.7 g/dL (14.0-18.0); LYMPHOCYTES # (AUTO) 0.5 10^3/uL (1.5-3.5); LYMPHOCYTES % (AUTO) 5.2 %; MEAN CORPUSCULAR HEMOGLOBIN 31.4 pg (27.0-31.0); MEAN CORPUSCULAR HGB CONC 31.8 g/dL (32.0-36.0); MEAN CORPUSCULAR VOLUME 98.7 fL (80.0-94.0); MEAN PLATELET VOLUME 10.9 fL (7.4-11.4); MONOCYTES # (AUTO) 0.5 10^3/uL (0.0-1.0); MONOCYTES % (AUTO) 5.2 %; NEUTROPHILS % (AUTO) 89.1 %; PLT - PLATELET COUNT 143 10^3/uL (130-450); RED BLOOD COUNT 3.09 10^6/uL (4.70-6.10); RED CELL DISTRIBUTION WIDTH 12.6 % (12.0-15.0)
[2020-08-01 05:27] LABS: ALBUMIN 3.3 g/dL (3.2-5.5); ALBUMIN/GLOBULIN RATIO 1.1 (1.0-2.2); BILIRUBIN,TOTAL 0.7 mg/dL (0.2-1.0); CALCIUM 8.6 mg/dL (8.5-10.3); CREATININE 0.8 mg/dL (0.6-1.2); TOTAL PROTEIN 6.2 g/dL (6.7-8.2)
[2020-08-01] MEDS: methocarbamoL 500 MG TABLET PO SCH ×2 (06:28→11:50)
[2020-08-01] MEDS: PANTOPRAZOLE 40 MG VIAL IVP SCH (06:34)
[2020-08-01] MEDS: PIPERACILLIN/TAZOBACTAM 3.375 GM in SODIUM CHLORIDE 0.9% MINIBAG 100 ML IV SCH ×2 (06:34→15:00)
[2020-08-01] MEDS ORDERED: polyethylene glycoL 3350 17 GM PACKET PO SCH (09:00)
[2020-08-01] MEDS: CHLORHEXIDINE GLUCONATE 15 ML UDC PO SCH (09:52)
--- NOTE | 2020-08-01 16:31 | Discharge Plan ---
Discharge Plan Problem Reviewed?: Yes Disposition: Home, Self Care Condition: Fair Prescriptions: Amox/Clav 875/125 [Augmentin] 1 each PO Q12H #14 tablet oxyCODONE [Roxicodone] 5 mg PO Q4-6H PRN #28 tablet PRN Reason: Pain Diet: Soft Activity Restrictions: Wt Bearing as Tolerated Shower Restrictions: No Driving Restrictions: Yes (Not while taking narcotics) Assistance Devices: Sling Instruction Topics: Hematoma Subdural, Fx Facial, Fx Rib Health Concerns: 1. Facial fracture care per Dr. Shaikh as instructed see elsewhere and as provided 2. With regard to subdural hematoma avoid nonsteroidals and aspirin-containing products as well as ibuprofen amongst others. Call or return to ER through the change in sensorium/consciousness. 3. Pulmonary lung nodule please follow-up with primary care for interval imaging to evaluate. 4. Any respiratory compromise proceed to the urgent care/ER and/or your primary care for instructions as a relates to shortness of breath or other symptoms. 5. Continue with sling until follow-up with orthopedics. 6. Continue antibiotics awaiting final cultures will call with any changes Plan of Treatment: DISCHARGE INSTRUCTIONS TEMPLATE: As it relates to the subdural hematoma, avoid antiplatelet agents including a spirin/Aleve/nonsteroidals. Call immediately or go to emergency room for any change in sensorium or fluctuations in consciousness. Use narcotics sparingly. Follow-up with orthopedics for any persistent right upper extremity discomfort. Call for any shortness of breath or return to the emergency room for any worrisome symptoms as a relates to respiratory function. No heavy lifting, pushing, or pulling. Stairs are allowed, no strenuous/exertional activities. 5-10lbs weight carrying limit (i.e. gallon of milk) If provided, abdominal binder while out of bed and while ambulating. Call or proceed to clinic/ER for fevers, severe pain, nausea, vomiting, inability to pass flatus/stool, bleeding, wound redness/discharge, weakness, excessively loose stool/diarrhea, or for any other reasonably worrisome symptom or concern. Soft MECHNICAL diet, no raw vegetables, avoid high fiber foods. Colace 100mg by mouth twice to three times daily while taking narcotic pain medication. If no bowel movement in 24-48hr, may take 17g Miralax in 8oz water twice daily until bowel movement. May shower, no submersive bathing. Follow up in clinic in 2-4 weeks for wound check and staple removal. No driving while taking narcotic pain medications. Follow up with primary care provider and/or medical subspecialist following discharge as well. INSTRUCTIONS PER DR. SHAIKH LISTED TO INCLUDE AND NOT BE LIMITED TO: 1. Soft diet, no straw sucking 2. No nose-blowing/sneezing 3. Follow-up with Dr. Shaikh as instructed Additional Instructions or Follow Up instructions: DISCHARGE INSTRUCTIONS TEMPLATE: As it relates to the subdural hematoma, avoid antiplatelet agents including aspirin/Aleve/nonsteroidals. Call immediately or go to emergency room for any change in sensorium or fluctuations in consciousness. Use narcotics sparingly. Follow-up with orthopedics for any persistent right upper extremity discomfort. Call for any shortness of breath or return to the emergency room for any worrisome symptoms as a relates to respiratory function. No heavy lifting, pushing, or pulling. Stairs are allowed, no strenuous/exertional activities. 5-10lbs weight carrying limit (i.e. gallon of milk) If provided, abdominal binder while out of bed and while ambulating. Call or proceed to clinic/ER for fevers, severe pain, nausea, vomiting, inability to pass flatus/stool, bleeding, wound redness/discharge, weakness, excessively loose stool/diarrhea, or for any other reasonably worrisome symptom or concern. Soft MECHNICAL diet, no raw vegetables, avoid high fiber foods. Colace 100mg by mouth twice to three times daily while taking narcotic pain medication. If no bowel movement in 24-48hr, may take 17g Miralax in 8oz water twice daily until bowel movement. May shower, no submersive bathing. Follow up in clinic in 2-4 weeks for wound check and staple removal. No driving while taking narcotic pain medications. Follow up with primary care provider and/or medical subspecialist following discharge as well. INSTRUCTIONS PER DR. SHAIKH LISTED TO INCLUDE AND NOT BE LIMITED TO: 1. Soft diet, no straw sucking 2. No nose-blowing/sneezing 3. Follow-up with Dr. Shaikh as instructed Follow-Up Care: Outpatient Rehab - PT No Smoking: If you smoke, Please STOP! Call for help. Follow-up with: Gilda Reno MD [Primary Care Provider] - Leonides Shaikh DDS [Provider Admit Priv/Credential] - Alin Delgadillo MD [Provider Admit Priv/Credential] - Josef Cameron MD [Provider Admit Priv/Credential] -
[2020-08-01 17:54] VITALS: BP 155/82
[2020-08-01] MEDS ORDERED: BACITRACIN ZINC OINT 1 PACKET TOP SCH (21:00)
--- NOTE | 2020-08-02 16:15 | DISCHARGE SUMMARY ---
"Discharge Summary Admit Date: 07/29/20 Discharge Date: 08/01/20 Discharging Provider: Nisha Code Status: Attempt Resuscitation Condition at Discharge: Fair Discharge Disposition: 01 Home, Self Care - DIAGNOSES Admission Diagnoses: 1. Subdural hematoma/intracranial hemorrhage 2. Facial fractures 3. Right rib fractures 4. Right scapular fracture 5. History of C-spine fixation 6. Loss of consciousness 7. Traumatic fall, severe 8. Pulmonary nodule Discharge Diagnoses with Status of Each Condition: 1. Subdural hematoma/intracranial hemorrhage - STABLE BY REPEAT IMAGING 2. Facial fractures - S/P OPERATIVE INTERVENTION 3. Right rib fractures - SYMPTOMATIC MANAGEMENT 4. Right scapular fracture - SLING AND ORTHOPAEDIC FOLLOW UP 5. History of C-spine fixation - NO CHANGE 6. Loss of consciousness - RESOLVED 7. Traumatic fall, severe - HISTORIC 8. Pulmonary nodule - PENDING OUTPATIENT FOLLOW UP - HPI History of Present Illness: 69-year-old male presents following fall from ladder while working on roof at his mother's house. There was positive loss of consciousness. He had spontaneous return to consciousness. He complains of facial pain and right chest wall tenderness. He underwent full work-up by the emergency room and was also noted for facial bone fractures as well as rib fractures and surgery was called for consultation and admission. He has no significant past medical history other than hypertension for which he takes hydrochlorothiazide and lisinopril. No significant past abdominal surgical history other than appendectomy. He does have a significant history of C-spine fixation and surgery. Conclusion/Plan Plan per oral maxillofacial surgery. Surgery on July 30 for ORIF. To this end we will continue to monitor for rhinorrhea, otorrhea, No antibiotics other than on-call to the OR per OMFS. Before surgery patient will have CT head and repeat chest x-ray to assure no propagation of his injuries. Great care should be taken given his history of C-spine fixation during positioning in the operating room. CT of the chest revealed rib fracture, subcutaneous emphysema. Pain control, oxygen, incentive spirometry. Given his skull fracture, and loss of consciousness, together with mechanism, will repeat CT of the head this a.m. to assure there is no propagation prior to his operative intervention. Admit ICU n.p.o., serial neuro checks. CT head impression: 1. No intracranial hemorrhage is seen 2. No significant intracranial abnormality is seen. 3. Numerous facial bone fractures are seen 6. Sinus blood can be seen. 4. Right sided scalp hematoma without associated displaced calvarial fracture. CT C-spine impression: 1. Extensive postoperative hardware, without findings of hardware failure or hardware loosening. 2. No acute fractures are seen. 3. Focal T1-T2 generative change Facial bone CT: 1. Extensive right-sided facial bone fractures are seen with associated prominent sinus hemorrhage 2. The right skull base is fractured with associated intracranial gas and a small amount of intracranial hemorrhage involving the anterior aspect of the right middle cranial fossa. 3. A complex fracture can also be seen involving the right cranial vault laterally. CT of the chest Undisplaced right lateral lower rib fracture, with immediate adjacent small amount of intercostal subcutaneous emphysema and also a mild focal pulmonary contusion within the lateral segment right middle lobe. No pneumothorax more superiorly is found. Note is made of a 2 x 3 mm nonspecific small pulmonary nodule anterior right middle lobe near the area of current injury. - CONSULTS | PROCEDURES Consultations: Orthopedics, OMFS, NEUROSURGICAL EVALUATION [facility] Procedures: ORIF OF FACIAL FRACTURES, SEE OPERATIVE NOTE OF DR. MEDEIROS - HOSPITAL COURSE Hospital Course: 69-year-old male status post fall now with evidence of subdural hematoma in addition to facial fractures. Awaiting ORIF. Also rib fractures no evidence of pneumothorax. Discussed as per below with [facility] neurosurgery. Patient's also been seen by orthopedics for shoulder/SCAPULA fracture for which there is no operative intervention. Patient had undergone head CT earlier today which showed propagation and interval increase in the subdural hematoma that was not initially read on his admission CT of the head. He has had no interval change in his sensorium. He is awake and alert. Discussed this at length with Dr. Greene from [facility], [facility]. There is no indication for any transfer at this time the patient is candidate for operative intervention with OMFS as long as another interval CT of the head shows no worsening of his bleed. Moreover we will continue him with serial neuro checks. Per Dr. Delgadillo from Orthopaedic Surgery, reviewed his x-rays 3 views of the right Shoulder Which show that his proximal humerus is located and concentric however he has a minimally displaced fracture of the superior one third of the glenoid with some comminution - I do not think that he needs an ORIF of the glenoid at this point and can be treated conservatively in a sling with active range of motion as tolerated. (Alin Delgadillo) He was maintained in the ICU with continued neuro checks. He was held for any DVT prophylaxis chemically. Repeat head CT was without any evidence of propagation. He was taken for ORIF per OMFS. He was maintained for sling for the right upper extremity. He did have a febrile episode during his hospitalization was pancultured and maintained on Zosyn and this was transitioned to Augmentin on outpatient basis and pending final cultures. On the day of discharge he had no sensorimotor deficits. No entrapment from his right eye status post his operative intervention with examination as listed elsewhere. Pulmonary function was improved which he was managed for throughout his hospitalization with supportive care given his rib fractures. He was discharged on narcotics and advised against nonsteroidal anti- inflammatories. Hemodynamically acceptable. White count was normal. Plan follow-up. DISCHARGE INSTRUCTIONS TEMPLATE: As it relates to the subdural hematoma, avoid antiplatelet agents including aspirin/Aleve/nonsteroidals. Call immediately or go to emergency room for any change in sensorium or fluctuations in consciousness. Use narcotics sparingly. Follow-up with orthopedics for any persistent right upper extremity discomfort. Call for any shortness of breath or return to the emergency room for any worrisome symptoms as a relates to respiratory function. No heavy lifting, pushing, or pulling. Stairs are allowed, no strenuous/exertional activities. 5-10lbs weight carrying limit (i.e. gallon of milk) If provided, abdominal binder while out of bed and while ambulating. Call or proceed to clinic/ER for fevers, severe pain, nausea, vomiting, inability to pass flatus/stool, bleeding, wound redness/discharge, weakness, excessively loose stool/diarrhea, or for any other reasonably worrisome symptom or concern. Soft MECHNICAL diet, no raw vegetables, avoid high fiber foods. Colace 100mg by mouth twice to three times daily while taking narcotic pain medication. If no bowel movement in 24-48hr, may take 17g Miralax in 8oz water twice daily until bowel movement. May shower, no submersive bathing. Follow up in clinic in 2-4 weeks for wound check and staple removal. No driving while taking narcotic pain medications. Follow up with primary care provider and/or medical subspecialist following discharge as well. INSTRUCTIONS PER DR. MEDEIROS LISTED TO INCLUDE AND NOT BE LIMITED TO: 1. Soft diet, no straw sucking 2. No nose-blowing/sneezing - ALLERGIES Allergies/Adverse Reactions: Allergies Allergy/AdvReac Type Severity Reaction Status Date / Time No Known Drug Allergies Allergy Verified 07/29/20 12:16 - MEDICATIONS Home Medications: Ambulatory Orders Medication Instructions Recorded Confirmed hydroCHLOROthiazide 25 mg PO DAILY 07/29/20 07/29/20 [Hydrochlorothiazide] lisinopriL [Lisinopril] 10 mg PO DAILY 07/29/20 07/29/20 Amox/Clav 875/125 [Augmentin] 1 each PO Q12H #14 tablet 08/01/20 methocarbamoL [Robaxin] 500 mg PO Q6HR tablet 08/01/20 oxyCODONE [Roxicodone] 5 mg PO Q4-6H PRN #28 tablet 08/01/20 polyethylene glycoL 3350 [Miralax] 17 gm PO DAILY packet 08/01/20 - PHYSICAL EXAM AT DISCHARGE General Appearance: positive: No acute distress, Alert, Mild distress Eyes Bilateral: positive: PERRL, EOMI, Other (Right periorbital ecchymosis consistent with posttraumatic and postoperative state. Full range of motion.) ENT: positive: ENT inspection nml, Other (No otorrhea or rhinorrhea) Neck: positive: Nml inspection, Other (No midline tenderness to palpation either with flexion and/or extension, no tenderness midline with bilateral rotation.) Respiratory: positive: Chest non-tender, No respiratory distress, Breath sounds nml. negative: Wheezes, Rales, Rhonchi Cardiovascular: positive: Regular rate & rhythm Abdomen: positive: Non-tender, No distention. negative: Tenderness, Guarding, Rebound Skin: positive: Color nml Extremities: positive: Non-tender, Other (Right upper extremity in sling) Neurologic/Psychiatric: positive: Oriented x3, CN's nml (2-12), Motor nml, Sensation nml, Mood/affect nml - LABS Result Diagrams: 08/01/20 04:30 08/01/20 04:30 - SEPSIS Current Stage of Sepsis: Ruled out Possible source of Sepsis: Other (Patient status post trauma for which he had rib fractures, pulmonary contusion, facial fractures, amongst others.) - FOLLOW UP Follow Up: 1. Facial fracture care per Dr. Medeiros as instructed see elsewhere and as provided 2. With regard to subdural hematoma avoid nonsteroidals and aspirin-containing products as well as ibuprofen amongst others. Call or return to ER through the change in sensorium/consciousness. 3. Pulmonary lung nodule please follow-up with primary care for interval imaging to evaluate. 4. Any respiratory compromise proceed to the urgent care/ER and/or your primary care for instructions as a relates to shortness of breath or other symptoms. 5. Continue with sling until follow-up with orthopedics. 6. Continue antibiotics awaiting final cultures will call with any changes - TIME SPENT Time Spent in Discharge (Minutes): 90"
== END 2020-08-01 18:05 | disposition home or self-care (01) | DRG 958 ==
LOC: ED 12:02 → ICU 16:18
PROVIDERS: ADMIT Surgery; ATTEND Surgery
PROC: 0NSR04Z Reposition Maxilla with Internal Fixation Device, Open Approach (ICD-10-PCS; principal; 2020-07-30)
PROC: 0NSN04Z Reposition Left Zygomatic Bone with Internal Fixation Device, Open Approach (ICD-10-PCS; 2020-07-30)
PROC: 0NSQ04Z Reposition Left Orbit with Internal Fixation Device, Open Approach (ICD-10-PCS; 2020-07-30)
DX: S02.40EA Zygomatic fracture, right side, initial encounter for closed fracture (principal); S06.5X1A Traumatic subdural hemorrhage with loss of consciousness of 30 minutes or less, initial encounter; S22.31XA Fracture of one rib, right side, initial encounter for closed fracture; S27.321A Contusion of lung, unilateral, initial encounter; T79.7XXA Traumatic subcutaneous emphysema, initial encounter; S02.31XA Fracture of orbital floor, right side, initial encounter for closed fracture; S02.841A Fracture of lateral orbital wall, right side, initial encounter for closed fracture; S02.19XA Other fracture of base of skull, initial encounter for closed fracture; S02.0XXA Fracture of vault of skull, initial encounter for closed fracture; S02.40CA Maxillary fracture, right side, initial encounter for closed fracture; S42.141A Displaced fracture of glenoid cavity of scapula, right shoulder, initial encounter for closed fracture; I10 Essential (primary) hypertension; R91.1 Solitary pulmonary nodule; W11.XXXA Fall on and from ladder, initial encounter; Y93.H9 Activity, other involving exterior property and land maintenance, building and construction; Y92.018 Other place in single-family (private) house as the place of occurrence of the external cause; Z79.899 Other long term (current) drug therapy; Z86.19 Personal history of other infectious and parasitic diseases; Z98.1 Arthrodesis status
CPT/HCPCS: 36415; 70450; 70486; 71045; 71250; 72125; 73030; 80053; 81003; 83690; 84484; 85025; 85610; 87040; 87150; 93005; 96361; 96374; 96375; 96376; 97110; 97161; 99285; A9270; C1713; J0131; J1170; J2060; J7120; 81001